=== PATIENT | female | born 1940 | race Two or more races ===

== ENCOUNTER 2024-08-13 21:00 | Emergency (ER) | payer MEDICARE, MEDICAID, SELFPAY ==
[2024-08-13 21:07] VITALS: BMI 32.0
[2024-08-13 21:08] VITALS: BP 130/78; PULSE 66; RESP 19; TEMP 36.7; O2SAT 97
[2024-08-13 21:17] VITALS: PULSE 72; RESP 18; O2SAT 94
--- NOTE | 2024-08-13 21:30 | EDNOTE_ITS ---
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 Since then patient is having continuous bleeding, severity moderate. Patient is not taking any blood thinner. Related Data Home Medications ?Medication ?Instructions ?Recorded ?Confirmed furosemide 20 mg tablet 40 mg PO QDAY 09/02/19 12/03/23 glipizide 10 mg tablet 1 tab PO BID 09/02/19 12/03/23 metoprolol tartrate 25 mg tablet 1 tab PO BID 09/02/19 12/03/23 pantoprazole 40 mg tablet,delayed 1 tab PO QDAY 09/02/19 12/03/23 release (Protonix) pioglitazone 30 mg tablet 1 tab PO QDAY 09/02/19 12/03/23 albuterol 90 mcg/actuation aerosol 90 mcg inhalation Q4HR PRN SOB 12/03/23 12/03/23 inhaler atorvastatin 80 mg tablet 80 mg PO QPM 12/03/23 12/03/23 benzonatate 100 mg capsule 100 mg PO TID PRN Cough 12/03/23 12/03/23 clopidogrel 75 mg tablet (Plavix) 75 mg PO QDAY 12/03/23 12/03/23 pentoxifylline 400 mg 400 mg PO TID 12/03/23 12/03/23 tablet,extended release Previous Rx's ?Medication ?Instructions ?Recorded ondansetron HCl 4 mg tablet 4 mg PO Q8H PRN nausea and 08/13/24 vomiting 4 days #20 tabs Allergies Allergy/AdvReac Type Severity Reaction Status Date / Time No Known Allergies Allergy Unverified 12/04/23 08:18 Review of Systems Review of Systems Narrative Review of Systems: Review of system reviewed and within normal limits except mentioned in HPI ED Exam Narrative Physical exam: VITAL SIGNS: Reviewed. GENERAL APPEARANCE: Alert and interactive, follows commands, no acute distress, HEAD AND FACE: Non-traumatic. ENT: PERRL, pink conjunctivitis, eyelid no trauma, Mucous membrane moist. Open wound noted on the left nares with significant amount of skin is gone, with active bleeding NECK: Supple, nontender, no nuchal rigidity. CHEST: No tenderness, no crepitus, no paradoxical movement, no retractions. LUNGS: Clear, well ventilated, symmetric, no rales, no wheezing, no ronchi, no stridor, good breath sounds bilaterally. HEART: Regular rate, regular rhythm, no murmur, no gallops. ABDOMEN: Soft, positive bowel sounds, nondistended, no guarding, nontender, no rebound, no masses, RECTAL: Deferred. GENITAL: Deferred. NEUROLOGICAL: Gross motor function intact sensory function intact, Appropriate for age. MUSCULOSKELETAL: low back nontender, full range of motion. EXTREMITIES: Nontender, full range of motion. SKIN: Color pink, dry, no rash, no lacerations, no abrasions, no contusions. LYMPHATICS: Deferred. Course Quality Measures none Orders Category Date Time Status CBC [CBC] Stat Lab 08/13/24 21:57 Completed CMP [Comprehensive Metabolic Panel] Stat Lab 08/13/24 21:57 Completed PT [Prothrombin Time with INR] Stat Lab 08/13/24 21:57 Completed PTT [Partial Thromboplastin Time] Stat Lab 08/13/24 21:57 Completed Metoclopramide Inj [Reglan Inj] Med 08/13/24 22:41 Discontinued 10 mg IVP X1 ONE Morphine Inj Med 08/13/24 22:15 Discontinued 10 mg IVP X1 ONE Morphine Inj Med 08/13/24 22:15 Discontinued 4 mg IVP X1 ONE Morphine Inj [Morphine Sulf Inj] Med 08/13/24 22:01 Discontinued 4 mg IVP X1 ONE Ondansetron Inj [Zofran Inj] Med 08/13/24 22:01 Discontinued 4 mg IV X1 ONE Tranexamic Acid 1,000 mg Ivpb [Tranexamic Acid Ivpb] Med 08/13/24 21:48 Discontinued 1,000 mg in 100 ml IV [id number] Tranexamic Acid 1,000 mg Ivpb [Tranexamic Acid Ivpb] Med 08/13/24 22:03 Discontinued 1,000 mg in 100 ml IV X1 Vital Signs Vital signs: Vital Signs Temperature 98.1 F 08/13/24 21:08 Pulse Rate 66 08/13/24 21:08 Respiratory Rate 19 08/13/24 21:08 Blood Pressure 130/78 08/13/24 21:08 Pulse Oximetry (%) 97 08/13/24 21:08 Oxygen Delivery Method Room Air 08/13/24 21:08 [facility] Patient data External records reviewed:: None Clinical information provided by:: patient and family Social determinants that could affect healthcare access:: none Patient has the following chronic illnesses:: History of skin cancer, diabetes apart How is presenting disease/condition affected by chronic disease/condition?: e xacerbated by Evaluation data The following diagnostics were reviewed and interpreted by me:: lab results Lab and/or radiology exams considered but not ordered:: None Interpretation Summary: Laboratory workup is significant for slight anemia of 9.4 hematocrit of 28.8 platelets is normal Medications Medications considered but not ordered:: None Medication administrations:: Medication Administration History Discontinued Medications Tranexamic Acid (Tranexamic Acid Ivpb) 1,000 mg in 100 mls @ 200 mls/hr IV [id number] PRN PRN Reason: BLEEDING Tranexamic Acid (Tranexamic Acid Ivpb) 1,000 mg in 100 mls @ 200 mls/hr IV X1 ONE Stop: 08/13/24 22:31 Last Admin: 08/13/24 22:27 Dose: 200 mls/hr Documented By: ERICK Metoclopramide HCl (Metoclopramide Inj 5 Mg/Ml Vial 2 Ml) 10 mg IVP X1 ONE; Protocol Stop: 08/13/24 22:42 Morphine Sulfate (Morphine Sulf Inj 4 Mg/Ml Vial) 4 mg IVP X1 ONE Stop: 08/13/24 22:02 Last Admin: 08/13/24 22:49 Dose: Not Given Documented By: KAZ Non-Admin Reason: Discontinued Morphine Sulfate (Morphine Sulf Inj 10 Mg/Ml Vial) 10 mg IVP X1 ONE Stop: 08/13/24 22:16 Last Admin: 08/13/24 22:50 Dose: Not Given Documented By: KAZ Non-Admin Reason: Discontinued Morphine Sulfate (Morphine Sulf Inj 10 Mg/Ml Vial) 4 mg IVP X1 ONE Stop: 08/13/24 22:16 Last Admin: 08/13/24 22:25 Dose: 4 mg Documented By: ERICK Ondansetron HCl (Ondansetron Inj 2 Mg/Ml Inj 2 Ml) 4 mg IV X1 ONE; Protocol Stop: 08/13/24 22:02 Last Admin: 08/13/24 22:26 Dose: 4 mg Documented By: ERICK Claros, morphine and tranexamic IV Consultations Consultation(s) initiated? (list below): No Diagnosis Differential Diagnosis ED Complaint MDM: Surgical wound hemorrhage, bleeding from the excision biopsy area left ivelisse Most likely diagnosis given after review of the tests above:: Surgical wound hemorrhage Admission Indicated Admission indicated?: not indicated Explain why admission is indicated or not indicated:: Stable Admission Request Was there a request for admission?: No Disposition Plan Disposition Plan: Discharge Discharge Attestation Discharge Attestation: The patient and all family members were given an opportunity to ask questions and understood the discharge instructions. Discharge instructions specifically effects, indications for sooner follow up or return to the emergency department, and the expected course of current diagnosis. Patient condition: Stable Medical Decision Making MDM Narrative MDM Narrative: Patient received tranexamic acid. Bleeding completely stopped after I did compression dressing. Patient stable for discharge. Differential Diagnosis Differential Diagnosis: Surgical wound hemorrhage, bleeding from the excision biopsy area left ivelisse Lab Data 08/13/24 21:57 08/13/24 21:57 Labs: Lab Results 08/13/24 Range/Units 21:57 WBC 6.0 (3.6-11.0) Thou/mm3 RBC 2.78 L (4.00-5.20) Miln/mm3 Hgb 9.4 L (12.0-16.0) g/dL Hct 28.8 L (36.0-46.0) % MCV 104 H (80-100) fL MCH 33.8 (25.0-35.0) pg MCHC 32.6 (31.0-37.0) g/dl RDW Std Deviation 54.0 H (36.4-46.3) fL Plt Count 179 (140-440) Thou/mm3 Neut % (Auto) 47 (37-80) % Lymph % (Auto) 44 (10-50) % [place] % (Auto) 5 (0-12) % Eos % (Auto) 4 (0-10) % Baso % (Auto) 0 (0-2.5) % Neut # (Auto) 2.8 (1.8-7.7) Thou/mm3 Lymph # (Auto) 2.6 (1.0-4.8) Thou/mm3 [place] # (Auto) 0.3 (0.0-0.8) Thou/mm3 Eos # (Auto) 0.2 (0.0-0.5) Thou/mm3 Baso # (Auto) 0.0 (0.0-0.2) Thou/mm3 Immature Gran # (Auto) 0.01 H (0.00-0.00) Thou/mm3 Absolute Nucleated RBC 0.00 (0.00-0.00) Thou/mm3 Immature Gran % 0 (0-0) % Nucleated RBC % 0 (0) /100 WBC PT 11.3 (9.0-12.2) Seconds INR 1.0 (0.9-1.3) APTT 26.4 (22.0-36.0) Seconds Sodium 140 (136-145) mMol/L Potassium 4.3 (3.4-5.1) mMol/L Chloride 108 H (98-107) mMol/L Carbon Dioxide 25.7 (20.0-31.0) mMol/L Anion Gap 6 L (7-16) BUN 27 H (9-23) mg/dL Creatinine 1.0 (0.6-1.3) mg/dL Estim Creat Clear Calc 42.3 L (>60) mL/min eGFR 56 L (60 - ) See Note BUN/Creatinine Ratio 27 H (12-20) Ratio Glucose 136 H (74-106) mg/dL Calculated Osmolality 286 (275-295) Calcium 9.5 (8.3-10.6) mg/dL Corrected Calcium 10.0 (8.5-10.1) mg/dL Total Bilirubin 0.3 (0.3-1.2) mg/dL AST 15 (0-34) U/L ALT < 7 L (10-49) U/L Alkaline Phosphatase 80 (46-116) U/L Total Protein 6.0 (5.7-8.2) gm/dL Albumin 3.4 (3.4-4.8) gm/dL Globulin 2.6 (2.3-3.5) gm/dL Albumin/Globulin Ratio 1.3 (1.2-2.2) Discharge Plan Plan Patient Disposition: HOME (Self Care) Disposition Comment: Stable Prescriptions/Referrals Prescriptions/Med Rec: New ondansetron HCl 4 mg tablet 4 mg PO Q8H PRN (Reason: nausea and vomiting) 4 Days Qty: 20 0RF No Action glipizide 10 mg Tablet 1 tab PO BID pantoprazole [Protonix] 40 mg Tablet,Delayed Release (Dr/Ec) 1 tab PO QDAY furosemide 20 mg Tablet 40 mg PO QDAY pioglitazone 30 mg Tablet 1 tab PO QDAY metoprolol tartrate 25 mg Tablet 1 tab PO BID atorvastatin 80 mg Tablet 80 mg PO QPM clopidogrel [Plavix] 75 mg Tablet 75 mg PO QDAY pentoxifylline 400 mg Tablet Extended Release 400 mg PO TID Rx Instructions: must administer with a meal/food benzonatate 100 mg Capsule 100 mg PO TID PRN (Reason: Cough) albuterol 90 mcg/actuation Aerosol 90 mcg INHALATION Q4HR PRN (Reason: SOB) Rx Instructions: 2 PUFFS Q4HRS PRN SOB Referrals: Neva([facility])Mike NP [Primary Care Provider] - In 1 week Problem List Clinical Impression: Postoperative wound hemorrhage Patient/Caregiver Discharge Instructions Discharge Activity: activity as tolerated Education Materials: Preventing Skin Cancer Additional Instructions: Thank you for the opportunity for serving you today. You are stable for discharged . You are advised to: Follow-up with your PCP in 1 to 2 days Return to ED for worsening of symptoms Increase oral fluids Do not remove the dressing for the next 48 hours Print Language: Slovak Stand Alone Forms: Tonya Award Info., Patient Portal Info Letter PA/RONALD Supervising Physician SHANTELLE/RONALD Supervising Physician: MD [place]
[2024-08-13 22:07] LABS: Basophils % (Auto) 0 % (0-2.5); Eosinophils # (Auto) 0.2 Thou/mm3 (0.0-0.5); Eosinophils % (Auto) 4 % (0-10); Hematocrit 28.8 % (36.0-46.0); Hemoglobin 9.4 g/dL (12.0-16.0); Immature Granulocytes % (Auto) 0 % (0-0); Immature Granulocytes Auto 0.01 Thou/mm3 (0.00-0.00); Lymphocytes # (Auto) 2.6 Thou/mm3 (1.0-4.8); Lymphocytes % (Auto) 44 % (10-50); Mean Corpuscular HGB Conc 32.6 g/dl (31.0-37.0); Mean Corpuscular Hemoglobin 33.8 pg (25.0-35.0); Mean Corpuscular Volume 104 fL (80-100); Monocytes # (Auto) 0.3 Thou/mm3 (0.0-0.8); Monocytes % (Auto) 5 % (0-12); Neutrophils # (Auto) 2.8 Thou/mm3 (1.8-7.7); Neutrophils % (Auto) 47 % (37-80); Nucleated Red Blood Cell % 0 /100 WBC (0); Platelet Count 179 Thou/mm3 (140-440); Red Blood Count 2.78 Miln/mm3 (4.00-5.20)
[2024-08-13 22:22] LABS: Partial Thromboplastin Time 26.4 Seconds (22.0-36.0); Prothrombin Time 11.3 Seconds (9.0-12.2)
[2024-08-13] MEDS: MORPHINE SULF INJ 10 MG/ML VIAL 4 MG IVP (22:25)
[2024-08-13] MEDS: ONDANSETRON INJ 2 MG/ML INJ 2 ML 4 MG IV (22:26)
[2024-08-13 22:27] LABS: Alanine Aminotransferase < 7 U/L (10-49); Albumin, Serum 3.4 gm/dL (3.4-4.8); Albumin/Globulin Ratio 1.3 (1.2-2.2); Alkaline Phosphatase 80 U/L (46-116); Anion Gap 6 (7-16); Aspartate Amino Transferase 15 U/L (0-34); BUN/Creatinine Ratio 27 Ratio (12-20); Bilirubin,Total 0.3 mg/dL (0.3-1.2); Blood Urea Nitrogen 27 mg/dL (9-23); Calcium 9.5 mg/dL (8.3-10.6); Carbon Dioxide 25.7 mMol/L (20.0-31.0); Chloride 108 mMol/L (98-107); Estimated Creatinine Clearance 42.3 mL/min (>60); Globulin 2.6 gm/dL (2.3-3.5); Glucose 136 mg/dL (74-106); Osmolality,Calculated 286 (275-295); Potassium 4.3 mMol/L (3.4-5.1); Sodium 140 mMol/L (136-145); eGFR 56 See Note
[2024-08-13] MEDS: TRANEXAMIC ACID 1,000 MG IVPB 1,000 MG/100 ML BAG 200 MG IV (22:27)
[2024-08-13] MEDS: METOCLOPRAMIDE INJ 5 MG/ML VIAL 2 ML 10 MG IVP (23:30)
[2024-08-14 00:28] VITALS: BP 170/54; PULSE 76; RESP 18; TEMP 36.6; O2SAT 96
== END 2024-08-14 00:33 | disposition home or self-care (01) ==
PROVIDERS: Nurse Practitioner Family; Emergency Provider Emergency Medicine; PCP Nurse Practitioner Family
DX: J95.831 Postprocedural hemorrhage of a respiratory system organ or structure following other procedure (principal); Y83.8 Other surgical procedures as the cause of abnormal reaction of the patient, or of later complication, without mention of misadventure at the time of the procedure
CPT/HCPCS: 36415; 80053; 85025; 85610; 85730; 99282; J2270; J2405; J2765; J3490

== ENCOUNTER → 2024-09-24 | Outpatient (CLI) | payer MEDICARE, MEDICAID, SELFPAY ==
[2024-09-24 14:24] LABS: Blood Urea Nitrogen 37 mg/dL (9-23); eGFR 56 See Note
== END | disposition home or self-care (01) ==
LOC: SLDO 12:43
PROVIDERS: Referring Provider Surgery Vascular Surgery; Visit Provider Surgery Vascular Surgery
DX: I70.245 Atherosclerosis of native arteries of left leg with ulceration of other part of foot (principal)
CPT/HCPCS: 36415; 82565; 84520

== ENCOUNTER → 2024-12-07 | Outpatient (CLI) | payer MEDICARE, MEDICAID, SELFPAY | END | disposition home or self-care (01) | LOC: SLDO 12:40 | PROVIDERS: PCP Nurse Practitioner Family; Referring Provider Nurse Practitioner Family; Visit Provider Nurse Practitioner Family | DX: L08.9 Local infection of the skin and subcutaneous tissue, unspecified (principal); E11.8 Type 2 diabetes mellitus with unspecified complications | CPT/HCPCS: 87070; 87077; 87186; 87205 ==

== ENCOUNTER 2024-12-15 12:24 | Inpatient (IN) | payer MEDICARE, MEDICAID, SELFPAY ==
[2024-12-15] VITALS (28 sets, daily range): BP systolic 92–180; BP diastolic 43–77; PULSE 80–93; RESP 12–100; TEMP 36.3–37.2; O2SAT 95–100; BMI 27.4
--- NOTE | 2024-12-15 12:32 | XR_ITS ---
Examination: AP chest single view Technique one AP portable semiupright chest single view Exam date and time: December 15, 2024 1330 hrs. Indications: Chest pain beginning 2 days ago. Findings: Moderate enlargement cardiac contour Prominent vascular congestion. Early septal edema. Prominent osteopenia Impression: Early CHF
--- NOTE | 2024-12-15 12:32 | XR_ITS ---
Examination: CT brain head without contrast. 2-D sagittal coronal reconstructions Date and time of exam:December 15, 2024 at 1319 hrs. Comparison: December 05, 2023 Indications: Onset altered mental status today CTDI: vol (mGy):57.0 DLP: (mGycm):1173 Technique: Multiple CT axial sections of the brain have been obtained, 5 mm slice thickness. Contrast has not been administered. 2-D sagittal, coronal reconstructions have been obtained Low dose protocols were performed. One or more of the following dose reduction techniques were used; automated exposure control, adjustment of the mA and/or KV according to patient size, use of iterative reconstruction technique. Findings: No significant ventricular enlargement. Intra-axial or extra-axial hemorrhage density is not seen. No mass effect or midline shift Basal cisterns are not remarkable. Fourth ventricle is midline. Cranial vault intact. Impression: Negative for acute hemorrhage, mass effect or midline shift If symptoms persist, consider brain MRI follow-up stroke protocol
--- NOTE | 2024-12-15 12:32 | EKG_ITS ---
[facility] Test Date: 2024-12-15 Pat Name: SHONDA PADRON Department: Room: - Gender: Female [employer] Project [employer]: : 1940 Requested By: Jone Allen Order Number: [id number] Reading MD: Jone Allen Measurements Intervals Hiram Rate: 85 P: 190 WI: 297 QRS: 46 QRSD: 96 T: 136 QT: 393 QTc: 468 Interpretive Statements SINUS RHYTHM WITH FIRST DEGREE AV BLOCK ST DEVIATION AND MODERATE T-WAVE ABNORMALITY, CONSIDER LATERAL ISCHEMIA [-0.1+ mV T-WAVE IN I/aVL/V5/V6] Compared to ECG 12/03/2023 17:51:56 First degree AV block now present T-wave abnormality still present Possible ischemia still present /store/S0/[id number]/[id number].pdf
--- NOTE | 2024-12-15 12:32 | XR_ITS ---
Examination: CT abdomen and pelvis without contrast. Coronal 3-D reconstructions. Sagittal 2-D reconstructions. Date and time of exam:December 15, 2024 at 1326 hrs. Indications: Vomiting and abdominal pain today CTDI: vol (mGy): 17.3 DLP: (mGycm): 1001 Technique: Axial images of the abdomen have been obtained, 3 mm slice thickness Intravenous contrast material has not been administered. Low dose protocols were performed. One or more of the following dose reduction techniques were used; automated exposure control, adjustment of the mA and/or KV according to patient size, use of iterative reconstruction technique. Findings: Trace pericardial thickening No focal liver lesions Cholelithiasis Gallbladder wall appears mildly thickened Spleen not enlarged No pancreatic or adrenal mass Perinephric stranding Renal arterial calcifications Tiny 1 to 2 mm bilateral renal calculi, no hydronephrosis or ureteral calculi Abdominal aortic calcification No bowel obstruction No pericecal inflammatory change No diverticulitis Large amounts of stool in the rectosigmoid with thickening the rectal wall, differential proctitis Air in the urinary bladder wall, urinary bladder wall thickening, severe emphysematous cystitis pattern Severe osteopenia Impression: Tiny bilateral nonobstructing renal calculi, no hydronephrosis or ureteral calculi No CT findings of appendicitis or bowel obstruction Large amounts of stool in rectosigmoid with thickening the rectal wall, differential would include proctitis Severe emphysematous cystitis pattern
--- NOTE | 2024-12-15 12:41 | EDNOTE_ITS ---
<Statement entered by Amalia Holden MD - 12/15/24 17:07> As co-signing physician, I was present and available for consult prn. I concur with the plan and care as documented by the midlevel provider. ED General RME/HPI General Chief complaint: Altered Mental Status Stated complaint: AMS Time Seen by Provider: 12/15/24 12:32 Arrival date/time: 12/15/24 12:24 CC: Altered mental status HPI patient presents to the ER via EMS to the patient has been altered for the past 2-1/2 days. Patient is normally talkative. However family made stated she has not been. EMS reports stable vital and route however and route the patient has a vomited coffee-ground emesis. Patient has responded to noxious stimuli and not answering any questions appropriately Related Data Home Medications ?Medication ?Instructions ?Recorded ?Confirmed furosemide 20 mg tablet 40 mg PO QDAY 09/02/1912/02 glipizide 10 mg tablet 1 tab PO BID 09/02/19 metoprolol tartrate 25 mg tablet 1 tab PO BID 09/02/19 12/03/23 pantoprazole 40 mg tablet,delayed 1 tab PO QDAY 12/03/23 release (Protonix) pioglitazone 30 mg tablet 1 tab PO QDAY 09/02/1912/02 albuterol 90 mcg/actuation aerosol 90 mcg inhalation Q 4HR PRN SOB 12/03/23 12/03/23 inhaler atorvastatin 80 mg tablet 80 mg PO QPM 12/03/23 benzonatate 100 mg capsule 100 mg PO TID PRN Cough 12/03/23 clopidogrel 75 mg tablet (Plavix) 75 mg PO QDAY 12/03/23 pentoxifylline 400 mg 400 mg PO TID 12/03/2312/02 tablet,extended release Allergies Allergy/AdvReac Type Severity Reaction Status Date / Time No Known Allergies Allergy Unverified 12/04/23 08:18 Review of Systems Review of Systems ROS Unobtainable: unobtainable due to mental status Past Medical History Past Medical History NEUROLOGIC: Negative Neurological Disorders or Seizures CARDIAC: Positive Cardiac Disorders, Atrial Fibrillation, Hypercholesterolemia, Deep Vein Thrombosis, Hypertension and Varicose Veins; Negative Congestive Heart Failure RESPIRATORY: Negative Chronic Obstructive Pulmonary Disease (COPD) GASTROINTESTINAL: Positive Gastrointestinal Disorders, Gastrointestinal Bleed, Ulcer and Obesity; Negative Hepatitis or Colorectal Cancer GENITOURINARY: Negative Genitourinary Disorders or Renal Disease REPRODUCTIVE: Positive Previous Pregnancies; Negative Breast Cancer, Endometriosis, Genital Herpes, Gonorrhea, Pelvic Inflammatory Disease, Syphilis or Uterine Prolapse MUSCULOSKELETAL: Positive Musculoskeletal Disorders and Arthritis; Negative Bone Cancer ENT: Positive Cataracts and Blind ENDOCRINE: Positive Endocrine Disorders and Diabetes Mellitus Type 2; Negative Diabetes Mellitus Type 1 HEMATOLOGIC: Negative Blood Disorders PSYCHO/SOCIAL: Positive Anxiety OTHER HISTORY: Positive Blood Transfusions; Negative Hospitalization, Autoimmune Disease, Down Syndrome, Developmental Delay, Shingles, Falls, Blood Transfusion Reaction, Anesthesia Reactions, Organ Transplant, Chemotherapy, Radiation Therapy, Hyperbaric Therapy, MRSA, VRSA, Vancomycin-Resistant Enterococci, Human Immunodeficiency Virus (HIV), Chicken Pox, Measles, Mumps, Rubella (Nepali Measles), Pertussis, Clostridium Difficile, Cancer, Breast Cancer, Cervical Cancer, Colorectal Cancer, Lung Cancer or Ovarian Cancer Family History FAMILY HISTORY: Negative Family Cardiac Disorders Surgical History SURGICAL: Negative Organ Transplant Social History SMOKING STATUS: Unknown if ever smoked ED Exam Narrative Physical exam: [General: Obese moaning to pain no other response appears not in any acute distress Head normocephalic HEENT: Eyes: Pupils are PERRLA EOMs are intact. Conjunctiva is pale. Mouth pink dry membranes uvula is midline swallow symmetrical. Lips are pale face no rhinorrhea no otorrhea no epistaxis. All other subsystems of ATTR within acceptable limits Neck is supple Chest equal chest rise nontender to palpation Respiratory: Clear to auscultation no wheezes crackles or rubs CV: Rate rhythm is regular no murmurs rubs or clicks Abdomen is distended secondary to body habitus soft nontender no masses positive bowel sounds all 4 quadrants. Coffee-ground emesis guaiac positive. Skin: Small open ulceration at the base of the left fifth toe. No surrounding erythema edema and small amount of exudate. Tender to palpation eliciting moaning from the patient. Right BKA. Stump is clean dry intact with surgical site well-healed. Not warm to touch. Otherwise skin is intact no petechiae rash induration ulceration or crepitus Extremities: Right lower extremity BKA stump. Passive range of motion no active range of motion Neuro: Moaning with noxious stimuli. Course Course Course Narrative: Patient's case presented to the resident for Dr. Bahena agrees to accept the patient for admission. Patient's case discussed with Dr. Monaco who agrees except the patient for admission to the ICU. Quality Measures none Orders Category Date Time Status EKG (ED ONLY) *Do not use* NOW Care 12/15/24 12:32 Completed Saline [Insert IV] NOW Care 12/15/24 12:32 Active Straight [In and Out Catheter] X1 Care 12/15/24 12:32 Completed Transfuse,blood/blood products NOW Care 12/15/24 13:37 Active Consult to Gastroenterology Stat Cons 12/15/24 13:[address] abdomen pelvis wo con Stat Exams 12/15/24 12:[address] head/brain wo con Stat Exams 12/15/24 12:32 Completed EKG (ED Only) Stat Exams 12/15/24 12:32 Draft XR chest 1V Stat Exams 12/15/24 12:32 Completed B-Type Natriuretic Peptide Stat Lab 12/15/24 13:00 Completed CBC Stat Lab 12/15/24 13:00 Completed Comprehensive Metabolic Panel Stat Lab 12/15/24 13:00 Completed Drug Screen,Urine Stat Lab 12/15/24 13:05 Completed LDH (Lactate Dehydrogenase) Stat Lab 12/15/24 13:00 Completed Lactic Acid [Lactate (Lactic Acid)] Stat Lab 12/15/24 13:00 Results Magnesium Stat Lab 12/15/24 13:00 Completed Occult Blood, Stool (LAB) Routine Lab 12/15/24 13:00 Completed Occult Blood, Stool (LAB) Routine Lab 12/15/24 13:00 Completed Partial Thromboplastin Time Stat Lab 12/15/24 13:00 Completed Path Review Blood Smear Stat Lab 12/15/24 13:00 Completed Procalcitonin Stat Lab 12/15/24 13:00 Completed Prothrombin Time with INR Stat Lab 12/15/24 13:00 Completed Troponin I Stat Lab 12/15/24 13:00 Completed Type and Screen Stat Lab 12/15/24 13:00 Results Urinalysis Stat Lab 12/15/24 13:05 Completed prbc [Red Blood Cells] Stat Lab 12/15/24 13:00 Results Pantoprazole Inj [Protonix Inj] Med 12/15/24 12:32 Discontinued 40 mg IVP X1 ONE Pantoprazole/Ns 80Mg IV Premix [Protonix/NS 80mg IV Med 12/15/24 12:34 Active Premix] 80 mg in 100 ml IV Q10H Sodium Chloride 0.9% 1000 ml [Ns] 1,000 ml Med 12/15/24 13:48 Active IV 100 mls/hr Sodium Chloride 0.9% 1000 ml [Ns] 1,000 ml Med 12/15/24 12:35 Discontinued IV 999 mls/hr Sodium Chloride 0.9% 1000 ml [Ns] 1,000 ml Med 12/15/24 14:01 Discontinued IV 999 mls/hr cefTRIAXone/D5w 1gm IV premix [Rocephin/D5w 1gm IV Med 12/15/24 13:48 Discontinued premix] 1 gm in 50 ml IV X1 Vital Signs Vital signs: Vital Signs Temperature 98.9 F 12/15/24 12:51 Pulse Rate 84 12/15/24 12:51 Respiratory Rate 15 12/15/24 12:51 Pulse Oximetry (%) 97 12/15/24 12:51 Oxygen Delivery Method Room Air 12/15/24 12:51 [facility] Patient data External records reviewed:: [facility] previous records and EMS form Clinical information provided by:: EMS Social determinants that could affect healthcare access:: none Patient has the following chronic illnesses:: 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 Hypertension hyperlipidemia type 2 diabetes right AKA How is presenting disease/condition affected by chronic disease/condition?: e xacerbated by Evaluation data The following diagnostics were reviewed and interpreted by me:: lab results, radiology exam(s) and EKG tracing(s) Lab and/or radiology exams considered but not ordered:: CBC shows no leukocytosis and H&H of 4.7 and 15.0. Platelets at 153. Coags showed APTT of 21.8 and PT and INR within acceptable limits. Lactic at 5.2 Urine is numerous WBCs 3+ bacteria leukocyte esterase positive but nitrite negative. Occult blood is positive UDS is negative CT head and C-spine is negative CMP shows no significant electrolyte imbalances the BUN is 129 and creatinine of 1.6. No transaminitis or T. bili elevation. Troponin of 0.219 BNP of 1212. Procalcitonin 0.16 Interpretation Summary: Patient has elevated troponin upper GI bleed PIO dehydration urinary tract infection altered mental status Medications Medications considered but not ordered:: None Medication administrations:: Medication Administration History Pantoprazole Sodium (Protonix/Ns 80mg Iv Premix) 80 mg in 100 mls @ 10 mls/hr IV Q10H BIMAL Stop: 12/18/24 10:33 Last Admin: 12/15/24 12:44 Dose: 10 mls/hr Documented By: GAVINO Sodium Chloride (Ns) 1,000 mls @ 100 mls/hr IV .Q10H BIMAL Stop: 01/14/25 13:47 Last Admin: 12/15/24 14:11 Dose: 100 mls/hr Documented By: GAVINO Discontinued Medications Sodium Chloride (Ns) 1,000 mls @ 999 mls/hr IV .Q1H1M ONE Stop: 12/15/24 13:35 Last Infusion: 12/15/24 13:45 Dose: Infused Documented By: Admin: 12/15/24 12:42 Dose: 999 mls/hr Documented By: GAVINO Ceftriaxone Sodium/Dextrose (Rocephin/D5w 1gm Iv Premix) 1 gm in 50 mls @ 100 mls/hr IV X1 ONE Stop: 12/15/24 14:17 Last Admin: 12/15/24 14:11 Dose: 100 mls/hr Documented By: GAVINO Sodium Chloride (Ns) 1,000 mls @ 999 mls/hr IV .Q1H1M ONE Stop: 12/15/24 15:01 Last Admin: 12/15/24 14:12 Dose: 999 mls/hr Documented By: GAVINO Pantoprazole Sodium (Pantoprazole Inj 40 Mg Vial) 40 mg IVP X1 ONE Stop: 12/15/24 12:33 Last Admin: 12/15/24 12:42 Dose: 40 mg Documented By: GAVINO None Consultations Consultation(s) initiated? (list below): Yes Consultation #1 (Physician, Specialty, Details): [place] Time: 14:11 Diagnosis Differential Diagnosis ED Complaint MDM: PIO altered mental status upper GI bleed anemia UTI dehydration Most likely diagnosis given after review of the tests above:: PIO altered mental status upper GI bleed anemia UTI dehydration Admission Indicated Admission indicated?: indicated Explain why admission is indicated or not indicated:: Requires further medical management Admission Request Was there a request for admission?: No Disposition Plan Disposition Plan: Admit Medical Decision Making Differential Diagnosis Differential Diagnosis: PIO altered mental status upper GI bleed anemia UTI dehydration Lab Data 12/15/24 13:00 12/15/24 13:00 Labs: Lab Results 12/15/24 12/15/24 12/15/24 Range/Units 13:00 13:00 13:05 WBC 10.1 (3.6-11.0) Thou/mm3 RBC 1.43 L* (4.00-5.20) Miln/mm3 Hgb 4.7 L* (12.0-16.0) g/dL Hct 15.0 L* (36.0-46.0) % MCV 105 H (80-100) fL MCH 32.9 (25.0-35.0) pg MCHC 31.3 (31.0-37.0) g/dl RDW Std Deviation 55.3 H (36.4-46.3) fL Plt Count 153 (140-440) Thou/mm3 Neut % (Auto) 82 H (37-80) % Lymph % (Auto) 14 (10-50) % [place] % (Auto) 3 (0-12) % Eos % (Auto) 0 (0-10) % Baso % (Auto) 0 (0-2.5) % Neut # (Auto) 8.3 H (1.8-7.7) Thou/mm3 Lymph # (Auto) 1.4 (1.0-4.8) Thou/mm3 [place] # (Auto) 0.3 (0.0-0.8) Thou/mm3 Eos # (Auto) 0.0 (0.0-0.5) Thou/mm3 Baso # (Auto) 0.0 (0.0-0.2) Thou/mm3 Immature Gran # (Auto) 0.07 H (0.00-0.00) Thou/mm3 Absolute Nucleated RBC 0.00 (0.00-0.00) Thou/mm3 Immature Gran % 1 H (0-0) % Nucleated RBC % 0 (0) /100 WBC Smear Path Review Sent to Pathologist PT 11.8 (9.0-12.2) Seconds INR 1.1 (0.9-1.3) APTT 21.8 L (22.0-36.0) Seconds Sodium 144 (136-145) mMol/L Potassium 4.4 (3.4-5.1) mMol/L Chloride 106 (98-107) mMol/L Carbon Dioxide 22.4 (20.0-31.0) mMol/L Anion Gap 16 (7-16) BUN 129 H* (9-23) mg/dL Creatinine 1.6 H (0.6-1.3) mg/dL Estim Creat Clear Calc 26.0 L (>60) mL/min eGFR 32 L (60 - ) See Note BUN/Creatinine Ratio 81 H (12-20) Ratio Glucose 259 H (74-106) mg/dL Calculated Osmolality 337 H (275-295) Lactic Acid 5.2 H* (0.4-2.0) mMol/L Calcium 9.0 (8.3-10.6) mg/dL Corrected Calcium 9.6 (8.5-10.1) mg/dL Magnesium 2.5 (1.6-2.6) mg/dL Total Bilirubin 0.3 (0.3-1.2) mg/dL AST 16 (0-34) U/L ALT 9 L (10-49) U/L Alkaline Phosphatase 63 (46-116) U/L Lactate Dehydrogenase 176 (120-246) U/L Troponin I 0.219 H* (0.0-0.045) ng/mL B-Natriuretic Peptide 1212 H* (0-100) pg/mL Total Protein 5.5 L (5.7-8.2) gm/dL Albumin 3.3 L (3.4-4.8) gm/dL Globulin 2.2 L (2.3-3.5) gm/dL Albumin/Globulin Ratio 1.5 (1.2-2.2) Procalcitonin 0.16 (0.0-0.49) ng/ml Ur Collection Type Clean Catch Urine Color Lt-Yellow (Lt Yel-Yel) Urine Clarity Hazy (Clear/Hazy) Urine pH 6.0 (5.0-7.0) Ur Specific [place] 1.018 (1.001-1.035) Urine Protein Trace (Neg - Trace) Urine Glucose (UA) Negative (Negative) Urine Ketones Negative (Negative) Urine Blood 3+ A (Negative) Urine Nitrite Negative (Negative) Urine Bilirubin Negative (Negative) Urine Urobilinogen (Auto) Negative (0.0-1.0) mg/dL Ur Leukocyte Esterase Positive (Negative) Urine RBC 129 H (0-3) /hpf Urine WBC 415 H (0-5) /hpf Ur Squamous Epith Cells 1 (0-5) /hpf Urine Bacteria 3+ A (None) Hyaline Casts < 1 (0-1) /hpf Stool Occult Blood Positive A Positive A (Negative) Urine Opiates Screen Negative (Negative) Urine Fentanyl Screen Negative (Negative) Ur Barbiturates Screen Negative (Negative) U Amphetamin/Meth Scrn Negative (Negative) U Benzodiazepines Scrn Negative (Negative) U Cocaine Metab Screen Negative (Negative) U Marijuana (THC) Screen Negative (Negative) Blood Type O Positive Antibody Screen NEGATIVE Crossmatch See Detail Blood Bank Wristband ID Yes Discharge Plan Plan Patient Disposition: Other Care w/in Hosp ([facility]) Patient condition on transfer: Stable Prescriptions/Referrals Prescriptions/Med Rec: No Action glipizide 10 mg Tablet 1 tab PO BID pantoprazole [Protonix] 40 mg Tablet,Delayed Release (Dr/Ec) 1 tab PO QDAY furosemide 20 mg Tablet 40 mg PO QDAY pioglitazone 30 mg Tablet 1 tab PO QDAY metoprolol tartrate 25 mg Tablet 1 tab PO BID atorvastatin 80 mg Tablet 80 mg PO QPM clopidogrel [Plavix] 75 mg Tablet 75 mg PO QDAY pentoxifylline 400 mg Tablet Extended Release 400 mg PO TID Rx Instructions: must administer with a meal/food benzonatate 100 mg Capsule 100 mg PO TID PRN (Reason: Cough) albuterol 90 mcg/actuation Aerosol 90 mcg INHALATION Q4HR PRN (Reason: SOB) Rx Instructions: 2 PUFFS Q4HRS PRN SOB Referrals: Neva([facility])Mike NP [Primary Care Provider] - In 1 week Problem List Clinical Impression: PIO (acute kidney injury), Altered mental status, Dehydration, UTI (urinary tract infection), Anemia, Acute upper GI bleed Patient/Caregiver Discharge Instructions Print Language: Armenian Stand Alone Forms: Tonya Award Info., Patient Portal Info Letter PA/GLOVE FORMER Supervising Physician PA/GLOVE FORMER Supervising Physician: Jone Strickland ENP
[2024-12-15] MEDS: PANTOPRAZOLE INJ 40 MG VIAL IVP (12:42)
[2024-12-15] MEDS: SODIUM CHLORIDE 0.9% 1000 ML 1,000 ML 999 ML IV ×2 (12:42→14:12)
[2024-12-15] MEDS: PANTOPRAZOLE/NS 80MG IV PREMIX 80 MG/100 ML BAG 10 MG IV ×2 (12:44→21:24)
[2024-12-15 13:09] LABS: Basophils % (Auto) 0 % (0-2.5); Eosinophils % (Auto) 0 % (0-10); Immature Granulocytes % (Auto) 1 % (0-0); Immature Granulocytes Auto 0.07 Thou/mm3 (0.00-0.00); Lymphocytes # (Auto) 1.4 Thou/mm3 (1.0-4.8); Lymphocytes % (Auto) 14 % (10-50); Mean Corpuscular HGB Conc 31.3 g/dl (31.0-37.0); Mean Corpuscular Hemoglobin 32.9 pg (25.0-35.0); Mean Corpuscular Volume 105 fL (80-100); Monocytes # (Auto) 0.3 Thou/mm3 (0.0-0.8); Monocytes % (Auto) 3 % (0-12); Neutrophils # (Auto) 8.3 Thou/mm3 (1.8-7.7); Neutrophils % (Auto) 82 % (37-80); Nucleated Red Blood Cell % 0 /100 WBC (0); Platelet Count 153 Thou/mm3 (140-440); RDW Standard Deviation 55.3 fL (36.4-46.3); Red Blood Count 1.43 Miln/mm3 (4.00-5.20); White Blood Count 10.1 Thou/mm3 (3.6-11.0)
[2024-12-15 13:11] LABS: Collection Type, Urine Clean Catch
[2024-12-15 13:14] LABS: Lactate (Lactic Acid) 5.2 mMol/L (0.4-2.0)
[2024-12-15 13:17] LABS: Hemoglobin 4.7 g/dL (12.0-16.0)
[2024-12-15 13:19] LABS: Amphetamine/Methamp Scrn,U Negative (Negative); Bacteria,Urine 3+; Barbiturate Screen,Urine Negative (Negative); Benzodiazepines Screen,Urine Negative (Negative); Benzoylecgonine Screen, Ur Negative (Negative); Bilirubin,Urine Negative (Negative); Blood,Urine 3+ (Negative); Clarity,Urine Hazy (Clear/Hazy); Color,Urine Lt-Yellow (Lt Yel-Yel); Fentanyl Screen,Urine Negative (Negative); Glucose, Urine Negative (Negative); Hyaline Casts,Urine < 1 /hpf (0-1); Ketones,Urine Negative (Negative); Leukocyte Esterase,Urine Positive (Negative); Nitrite,Urine Negative (Negative); Opiate Screen,Urine Negative (Negative); Protein,Urine Trace (Neg - Trace); RBC,Urine 129 /hpf (0-3); Specific Gravity,Urine 1.018 (1.001-1.035); Squamous Epithelial Cell,Urine 1 /hpf (0-5); THC Screen,Urine Negative (Negative); Urobilinogen,Urine Negative mg/dL (0.0-1.0); WBC,Urine 415 /hpf (0-5)
[2024-12-15 13:24] LABS: INR 1.1 (0.9-1.3); Partial Thromboplastin Time 21.8 Seconds (22.0-36.0); Prothrombin Time 11.8 Seconds (9.0-12.2)
[2024-12-15 13:27] LABS: OBS Card Lot # 2663210; OBS Developer Expiration Date 12; OBS Developer Lot # 124551749; OBS Performed By HICKE7; OBS QC OK? Yes; Occult Blood, Stool Positive (Negative)
[2024-12-15 13:29] LABS: OBS Developer Lot # 1245749; OBS Performed By HICKE1; OBS QC OK? Yes; Occult Blood, Stool Positive (Negative)
[2024-12-15 13:36] LABS: B-Type Natriuretic Peptide 1212 pg/mL (0-100)
[2024-12-15 13:46] LABS: Alanine Aminotransferase 9 U/L (10-49); Albumin, Serum 3.3 gm/dL (3.4-4.8); Albumin/Globulin Ratio 1.5 (1.2-2.2); Alkaline Phosphatase 63 U/L (46-116); Anion Gap 16 (7-16); Aspartate Amino Transferase 16 U/L (0-34); BUN/Creatinine Ratio 81 Ratio (12-20); Bilirubin,Total 0.3 mg/dL (0.3-1.2); Calcium (Corrected) 9.6 mg/dL (8.5-10.1); Carbon Dioxide 22.4 mMol/L (20.0-31.0); Chloride 106 mMol/L (98-107); Creatinine (Component) 1.6 mg/dL (0.6-1.3); Globulin 2.2 gm/dL (2.3-3.5); Glucose 259 mg/dL (74-106); LDH (Lactate Dehydrogenase) 176 U/L (120-246); Magnesium 2.5 mg/dL (1.6-2.6); Osmolality,Calculated 337 (275-295); Potassium 4.4 mMol/L (3.4-5.1); Procalcitonin 0.16 ng/ml (0.0-0.49); Sodium 144 mMol/L (136-145); Total Protein 5.5 gm/dL (5.7-8.2); eGFR 32 See Note
[2024-12-15 13:52] LABS: Blood Urea Nitrogen 129 mg/dL (9-23); Troponin I 0.219 ng/mL (0.0-0.045)
[2024-12-15] MEDS: SODIUM CHLORIDE 0.9% 1000 ML 1,000 ML 100 ML IV (14:11)
[2024-12-15] MEDS: cefTRIAXone/D5w 1gm IV premix 1 GM/50 ML BAG IV (14:11)
[2024-12-15 14:21] LABS: Path Review Blood Smear Sent to Pathologist
--- NOTE | 2024-12-15 15:23 | PD.RESHP ---
Documentation for date of: 12/15/24 HPI History of Present Illness Chief complaint: Vomiting blood, altered mental status History of present illness: 84-year-old female with past medical history of upper GI bleed, CVA, hypertension, hyperlipidemia, IDDM, right AKA, and peripheral artery disease was admitted to the ICU on 12/25/2024 after coming to the ED with complaints of altered mental status and bloody emesis. At the time of assessment patient was confused and was not able to provide any history therefore most of the history was taken from chart review and from patient's daughters were at bedside. Patient's daughter stated that around Friday the patient started having some vomiting episodes which they thought that the patient had eaten something that upset her stomach, but then on Friday and today she continued to vomit and today she had blood coming out of her nostrils as well as her vomit. Patient's daughter stated that patient has a ulcer in her left foot which she is being followed by vascular surgeon as an outpatient. She stated that the nurse that comes in for wound care stated that the wound looked clean and that it was not infected, but today patient did seem more confused and was not her baseline therefore she recommended them to come to the ER. Patient's daughters stated that patient had similar episode where she was also altered as she had bloody emesis more than a year ago where she went to [facility] and she had an endoscopy done due to bloody emesis. They did not remember if the patient was positive for H. pylori, but they stated that during this episode in the past she was on aspirin and Plavix, which was taken off. They also mention that around a year ago they placed the patient back on aspirin and Plavix and has been on until now. They stated that the patient has not been having any bloody bowel movements, dark stools, fevers, chills, or chest pain. ED course: Initially came in normotensive, afebrile, and mildly hypotensive. Initial labs were relevant for anemia (Hgb 4.7), PIO (creatinine 1.6 and BUN 129), lactic acidosis (5.2), troponinemia (0.219), elevated BNP (1212), positive fecal occult blood, and UA positive for bacteria. Initial imaging included abdomen/pelvis CT which showed nephrolithiasis which were nonobstructing, constipation, proctitis, and emphysematous cystitis; chest x-ray showed early CHF pattern; head CT was negative for any mass effect, hemorrhage, or midline shift. Received 2 L of IV fluids, Rocephin, and Protonix drip. PMH: As above Surgical Hx: Right AKA, cataract surgery, femoral artery stents Medications: Atorvastatin, Plavix, Lasix, metoprolol Social Hx: No history of smoking, drinking, illicit drugs Allergies: NKDA Review of Systems Review of Systems ROS Unobtainable: unobtainable due to mental status Past Medical History Past Medical History NEUROLOGIC: Negative Neurological Disorders or Seizures CARDIAC: Positive Cardiac Disorders, Atrial Fibrillation, Hypercholesterolemia, Deep Vein Thrombosis, Hypertension and Varicose Veins; Negative Congestive Heart Failure RESPIRATORY: Negative Chronic Obstructive Pulmonary Disease (COPD) GASTROINTESTINAL: Positive Gastrointestinal Disorders, Gastrointestinal Bleed, Ulcer and Obesity; Negative Hepatitis or Colorectal Cancer GENITOURINARY: Negative Genitourinary Disorders or Renal Disease REPRODUCTIVE: Positive Previous Pregnancies; Negative Breast Cancer, Endometriosis, Genital Herpes, Gonorrhea, Pelvic Inflammatory Disease, Syphilis or Uterine Prolapse MUSCULOSKELETAL: Positive Musculoskeletal Disorders and Arthritis; Negative Bone Cancer ENT: Positive Cataracts and Blind ENDOCRINE: Positive Endocrine Disorders and Diabetes Mellitus Type 2; Negative Diabetes Mellitus Type 1 HEMATOLOGIC: Negative Blood Disorders PSYCHO/SOCIAL: Positive Anxiety OTHER HISTORY: Positive Blood Transfusions; Negative Hospitalization, Autoimmune Disease, Down Syndrome, Developmental Delay, Shingles, Falls, Blood Transfusion Reaction, Anesthesia Reactions, Organ Transplant, Chemotherapy, Radiation Therapy, Hyperbaric Therapy, MRSA, VRSA, Vancomycin-Resistant Enterococci, Human Immunodeficiency Virus (HIV), Chicken Pox, Measles, Mumps, Rubella ([place] Measles), Pertussis, Clostridium Difficile, Cancer, Breast Cancer, Cervical Cancer, Colorectal Cancer, Lung Cancer or Ovarian Cancer Family History FAMILY HISTORY: Negative Family Cardiac Disorders Surgical History SURGICAL: Negative Organ Transplant Social History SMOKING STATUS: Unknown if ever smoked Exam Vital Signs Temp Pulse Resp BP Pulse Ox O2 Del Method 97.7 F 91 18 114/53 L 100 Room Air 12/15/24 15:14 12/15/24 15:14 12/15/24 15:14 12/15/24 15:14 12/15/24 15:14 12/15/24 15:14 Narrative Exam General: A/O x0, ill appearing elderly, lethargic, moaning Eyes: Right pupil reactive to light, left pupil dilated and nonreactive (residual from past CVA) Ears: No visual ear discharge, Hearing grossly intact. Nose: No visual nasal discharge. Dried blood around both nostrils Mouth/Throat: Dry mucous membranes, no redness, no lesions, dried blood around the lips. Neck: Short neck, no cervical lymphadenopathy. Lungs: Decreased breath sounds on the left side with coarse breath sounds on the right side Cardio: Normal S1/S2, regular rhythm, no murmurs, no JVD Abdomen: Soft, no palpable masses, peristalsis present, no guarding or rebound. Extremities: Right AKA, ulcer between left 5th and 4th toe, 1+ peripheral edema on the left, able to move both upper extremities. Skin: Ulcer between left 5th and 4th toe Neuro: Able to follow some commands, unable to provide any history, lethargic Results: Labs 12/16/24 04:45 12/16/24 04:45 Labs: Short CBC 12/15/24 Range/Units 13:00 WBC 10.1 (3.6-11.0) Thou/mm3 Hgb 4.7 L* (12.0-16.0) g/dL Hct 15.0 L* (36.0-46.0) % Plt Count 153 (140-440) Thou/mm3 BMP 12/15/24 13:00 Sodium 144 Potassium 4.4 Chloride 106 Carbon Dioxide 22.4 BUN 129 H* Creatinine 1.6 H Glucose 259 H Calcium 9.0 Cardiac Enzymes 12/15/24 Range/Units 13:00 Troponin I 0.219 H* (0.0-0.045) ng/mL Liver Function 12/15/24 Range/Units 13:00 Total Bilirubin 0.3 (0.3-1.2) mg/dL AST 16 (0-34) U/L ALT 9 L (10-49) U/L Alkaline Phosphatase 63 (46-116) U/L Albumin 3.3 L (3.4-4.8) gm/dL Urine 12/15/24 Range/Units 13:05 Urine Color Lt-Yellow (Lt Yel-Yel) Urine Clarity Hazy (Clear/Hazy) Urine pH 6.0 (5.0-7.0) Ur Specific [place] 1.018 (1.001-1.035) Urine Protein Trace (Neg - Trace) Urine Glucose (UA) Negative (Negative) Quality Measures Quality Measures none Advance care planning discussed with:: patient Medications Home Medications and Allergies Home Medications ?Medication ?Instructions ?Recorded ?Confirmed ?Type furosemide 20 mg tablet 40 mg PO QDAY 09/02/19 12/15/24 History glipizide 10 mg tablet 1 tab PO BID 09/02/19 12/15/24 History metoprolol tartrate 25 mg tablet 1 tab PO BID 09/02/19 12/15/24 History pantoprazole 40 mg tablet,delayed 1 tab PO QDAY 09/02/19 12/15/24 History release (Protonix) pioglitazone 30 mg tablet 1 tab PO QDAY 09/02/19 12/15/24 History albuterol 90 mcg/actuation aerosol 90 mcg inhalation Q4HR PRN SOB 12/03/23 12/15/24 History inhaler atorvastatin 80 mg tablet 80 mg PO QPM 12/03/23 12/15/24 History benzonatate 100 mg capsule 100 mg PO TID PRN Cough 12/03/23 12/15/24 History clopidogrel 75 mg tablet (Plavix) 75 mg PO QDAY 12/03/23 12/15/24 History pentoxifylline 400 mg 400 mg PO TID 12/03/23 12/15/24 History tablet,extended release aspirin 81 mg tablet,delayed 81 mg PO DAILY 12/15/24 12/15/24 History release ferrous sulfate 325 mg (65 mg mg PO DAILY 12/15/24 History iron) tablet (FeroSul) insulin glargine 100 unit/mL (3 20 unit subcut .qhs 12/15/24 12/15/24 History mL) subcutaneous pen (Lantus Solostar U-100 Insulin) potassium chloride 20 mEq 20 meq PO DAILY 12/15/24 12/15/24 History tablet,extended release(part/cryst) Allergies Allergy/AdvReac Type Severity Reaction Status Date / Time No Known Allergies Allergy Unverified 12/04/23 08:18 Visit Medications Acetaminophen (Acetaminophen Supp 650 Mg Supp) 650 mg VA Q6HR PRN PRN Reason: pain and Fever > 100.4 Stop: 01/14/25 15:09 Dextrose (Dextrose 50%-Water Inj 50 Ml Syringe) 25 ml IV Q15MIN PRN PRN Reason: BG 50-70 responsive npo pt Stop: 01/14/25 15:14 Dextrose (Dextrose 50%-Water Inj 50 Ml Syringe) 50 ml IV Q15MIN PRN PRN Reason: BG <50 OR BG <70 & pt unresponsive Stop: 01/14/25 15:14 Glucagon (Glucagon Inj 1 Mg Vial) 1 mg IM Q15MIN PRN PRN Reason: BG <70, and no IV access Pantoprazole Sodium (Protonix/Ns 80mg Iv Premix) 80 mg in 100 mls @ 10 mls/hr IV Q10H BIMAL Stop: 12/18/24 10:33 Last Admin: 12/15/24 12:44 Dose: 10 mls/hr Sodium Chloride (Ns) 1,000 mls @ 100 mls/hr IV .Q10H BIMAL Stop: 01/14/25 13:47 Last Admin: 12/15/24 14:11 Dose: 100 mls/hr Doxycycline Hyclate 100 mg/ (Sodium Chloride) 100 mls @ 100 mls/hr IV BID BIMAL Stop: 12/22/24 20:59 Ceftriaxone Sodium 1 gm/ (Sodium Chloride) 50 mls @ 100 mls/hr IV QDAY BIMAL Stop: 12/23/24 08:59 Insulin Human Lispro (Insulin Lispro (Admelog) 1 Unit/0.01 Ml Unit) 0 unit SC Q6H BIMAL; Protocol Stop: 01/14/25 15:14 Morphine Sulfate (Morphine Sulf Inj 10 Mg/Ml Vial) 1 mg IVP Q4H PRN PRN Reason: PAIN SCALE 4-10(Mod-Sev Stop: 12/20/24 15:14 Ondansetron HCl (Ondansetron Inj 2 Mg/Ml Inj 2 Ml) 4 mg IV Q6H PRN; Protocol PRN Reason: NAUSEA OR VOMITING Stop: 01/14/25 15:09 Pantoprazole Sodium (Pantoprazole Inj 40 Mg Vial) 40 mg IVP BID BIMAL Stop: 01/14/25 20:59 Discontinued Medications Sodium Chloride (Ns) 1,000 mls @ 999 mls/hr IV .Q1H1M ONE Stop: 12/15/24 13:35 Last Infusion: 12/15/24 13:45 Dose: Infused Ceftriaxone Sodium/Dextrose (Rocephin/D5w 1gm Iv Premix) 1 gm in 50 mls @ 100 mls/hr IV X1 ONE Stop: 12/15/24 14:17 Last Infusion: 12/15/24 15:05 Dose: Infused Sodium Chloride (Ns) 1,000 mls @ 999 mls/hr IV .Q1H1M ONE Stop: 12/15/24 15:01 Last Admin: 12/15/24 14:12 Dose: 999 mls/hr Pantoprazole Sodium (Pantoprazole Inj 40 Mg Vial) 40 mg IVP X1 ONE Stop: 12/15/24 12:33 Last Admin: 12/15/24 12:42 Dose: 40 mg Assessment & Plan Plan 84-year-old female with past medical history of upper GI bleed, CVA, hypertension, hyperlipidemia, IDDM, right AKA, and peripheral artery disease was admitted to the ICU on 12/25/2024 for management of acute blood loss anemia with acute encephalopathy and anticipation for vasopressor support. 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 She is very lethargic Most likely metabolic in the setting of acute blood loss anemia and UTI. Head CT unremarkable Speech evaluation ordered #Hx of CVA Patient was taking atorvastatin, Plavix, and aspirin Will hold off Plavix and aspirin for now in the setting of bleeding Patient will be n.p.o. for now CVS: #Possible acute decompensated heart failure Patient's BNP was 1212 Patient has 1+ peripheral edema on the left side There is some CHF pattern on chest x-ray There is no echo on file Echo ordered We will hold off from diuresis for now as patient is actively bleeding and could go into cardiogenic shock #Troponinemia Patient's troponin was elevated at 0.219 EKG did not show any acute ST changes This is most likely demand ischemia in the setting of blood loss and possible CHF exacerbation Will trend troponins Echo ordered #Hypotension Patient's blood pressure has been on the lower end, but maintaining a MAP above 65 Expect improvement with volume resuscitation from PRBC and IV fluids Respiratory: Stable Renal: #PIO Most likely prerenal in the setting of blood loss Patient came in with creatinine of 1.6 from her baseline of 1 IV fluids and volume repletion with PRBCs Avoid nephrotoxic agents Renally dose medications #Lactic acidosis Patient came in initially with a lactic acid of 5.2 Most likely secondary to blocked loss Will trend lactic acid #Nonobstructing nephrolithiasis Abdomen/pelvis CT that show some nonobstructing nephrolithiasis GI: #GI bleed #Hematemesis Patient came in initially with complaints of bloody emesis Patient does have a history of previous upper GI bleed from possible gastric ulcers which were followed by endoscopy in [facility] Fecal occult blood was positive Patient was taking aspirin and Plavix Continue Protonix drip Will transfuse 3 units of PRBC GI consulted #Severe constipation #Proctitis Abdomen/pelvis CT that shows some proctitis pattern as well as large amounts of stool within the rectosigmoid : #Emphysematous cystitis #UTI Abdomen/pelvis CT that shows severe emphysematous pattern with air in the urinary bladder wall UA showed bacteriuria Start patient on Rocephin 1 g daily [12/15/2024?] Blood cultures ordered Heme: #Acute blood loss anemia Patient came in with hemoglobin of 4.7 from her baseline of 9.4 on 08/13/2024. Patient does have a component of macrocytic anemia in the past with elevated MCV Patient had copious amounts of blood during vomiting episodes and fecal occult blood was positive Will transfuse 3 units of PRBCs. GI consulted Hospital Maintenance: Diet: NPO DVT ppx: held due to bleeding GI ppx: protonix IV lines: PIV Code status: Full Dispo: ICU for acute blood loss anemia, acute encephalopathy Case disclosed with Attending Dr. Lia Dave PGY1 Attending Provider Attestation/Addendum Patient seen and examined with above resident, Santo Dave MD. I agree with the findings, assessment, plan of care as document except for any differences below. Patient with emphysematous cystitis and severe sepsis with lactic acidosis 5.2 again elevated BUN/creatinine. Superimposed component of gastrointestinal hemorrhage, likely upper GI source. Remote history of peptic ulcer disease though H. pylori excluded in the past. Patient without any significant hematemesis at this point. No significant hematochezia or bright red blood per rectum. BUN/creatinine consistent with upper GI source. Will contact GI and transfuse as needed to maintain hemoglobin above 7. No vasopressor requirements at this time after adequate fluid resuscitation for potential severe sepsis as alternate etiology to hypotension and presentation. She has acute encephalopathy as alternate site of endorgan damage. Empiric antibiotics initiated with adequate coverage for both cystitis as well as potentially for left lower extremity wound, known significant peripheral artery disease. Follow-up on culture status to help narrow antibiotic regimen. Patient has Bar in place with adequate drainage. Patient with underlying diabetes we will optimize blood glucose less than 180. Appropriate DVT prophylaxis in place. Patient's family at bedside updated and agreed to DNR status. Total critical care time: I personally spent 40 minutes for review of physiologic parameters, directing plan of care throughout the day, coordination of care with other specialties, and counseling patient's family at bedside. This is exclusive of time spent teaching housestaff or performing any separate billable procedures. Patient continues to require critical care services for severe sepsis and acute upper GI bleed. She remains at high risk for further morbidity and mortality warranting close monitoring and care only available in the ICU.
[2024-12-15 16:04] LABS: Reflex Lactate? Y
[2024-12-15 17:07] LABS: Lactic Acid, 3 HR 4.1 mMol/L (0.4-2.0)
[2024-12-15] MEDS: MORPHINE SULF INJ 10 MG/ML VIAL IVP (18:47)
[2024-12-15] MEDS: ONDANSETRON INJ 2 MG/ML INJ 2 ML 4 MG IV (20:19)
[2024-12-15] MEDS: DOXYCYCLINE INJ 100 MG in SODIUM CHLORIDE 0.9% (POP) 100 ML IV (21:24)
--- NOTE | 2024-12-15 22:54 | PD.IMCONS ---
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 OPERATOR Consult Narrative Reason for consult: Hematemesis, hemoglobin 4.1 g getting transfusion History of present illness: 84 years old female admitted to the ICU because of hypotension and coffee-ground emesis with a presenting hemoglobin of 4.1 g She had a CT scan of the abdomen pelvis done without contrast which showed large stool in the colon emphysematous cystitis otherwise negative She had a BUN of 129 creatinine 1.1 lactic acid of 5.2 BNP 1212 and a troponin of 0.219 Patient has a history of CVA essential hypertension hyperlipidemia insulin-dependent diabetes mellitus right AKA and peripheral vascular disease She had altered mental status and encephalopathy on admission No history is obtainable from the patient cc:: cc: Palomo Fitzgerald MD Review of Systems Review of Systems ROS Unobtainable: unobtainable due to medical condition Meds Home Medications and Allergies Home Medications ?Medication ?Instructions ?Recorded ?Confirmed ?Type furosemide 20 mg tablet 40 mg PO QDAY 09/02/19 12/15/24 History glipizide 10 mg tablet 1 tab PO BID 09/02/19 12/15/24 History metoprolol tartrate 25 mg tablet 1 tab PO BID 09/02/19 12/15/24 History pantoprazole 40 mg tablet,delayed 1 tab PO QDAY 09/02/19 12/15/24 History release (Protonix) pioglitazone 30 mg tablet 1 tab PO QDAY 09/02/19 12/15/24 History albuterol 90 mcg/actuation aerosol 90 mcg inhalation Q4HR PRN SOB 12/03/23 12/15/24 History inhaler atorvastatin 80 mg tablet 80 mg PO QPM 12/03/23 12/15/24 History benzonatate 100 mg capsule 100 mg PO TID PRN Cough 12/03/23 12/15/24 History clopidogrel 75 mg tablet (Plavix) 75 mg PO QDAY 12/03/23 12/15/24 History pentoxifylline 400 mg 400 mg PO TID 12/03/23 12/15/24 History tablet,extended release aspirin 81 mg tablet,delayed 81 mg PO DAILY 12/15/24 12/15/24 History release ferrous sulfate 325 mg (65 mg mg PO DAILY 12/15/24 History iron) tablet (FeroSul) insulin glargine 100 unit/mL (3 20 unit subcut .qhs 12/15/24 12/15/24 History mL) subcutaneous pen (Lantus Solostar U-100 Insulin) potassium chloride 20 mEq 20 meq PO DAILY 12/15/24 12/15/24 History tablet,extended release(part/cryst) Allergies Allergy/AdvReac Type Severity Reaction Status Date / Time No Known Allergies Allergy Unverified 12/04/23 08:18 Exam Vital Signs Temp Pulse Resp BP Pulse Ox O2 Del Method 97.4 F 85 14 148/60 H 98 Room Air 12/15/24 21:00 12/15/24 21:00 12/15/24 21:00 12/15/24 21:00 12/15/24 21:00 12/15/24 17:55 Constitutional Comments: Chronically ill-appearing Routine Respiratory Exam Comments: Normal to auscultation Results Labs 12/15/24 13:00 12/15/24 13:00 Labs: Short CBC 12/15/24 Range/Units 13:00 WBC 10.1 (3.6-11.0) Thou/mm3 Hgb 4.7 L* (12.0-16.0) g/dL Hct 15.0 L* (36.0-46.0) % Plt Count 153 (140-440) Thou/mm3 BMP 12/15/24 13:00 Sodium 144 Potassium 4.4 Chloride 106 Carbon Dioxide 22.4 BUN 129 H* Creatinine 1.6 H Glucose 259 H Calcium 9.0 Cardiac Enzymes 12/15/24 Range/Units 13:00 Troponin I 0.219 H* (0.0-0.045) ng/mL Liver Function 12/15/24 Range/Units 13:00 Total Bilirubin 0.3 (0.3-1.2) mg/dL AST 16 (0-34) U/L ALT 9 L (10-49) U/L Alkaline Phosphatase 63 (46-116) U/L Albumin 3.3 L (3.4-4.8) gm/dL Urine 12/15/24 Range/Units 13:05 Urine Color Lt-Yellow (Lt Yel-Yel) Urine Clarity Hazy (Clear/Hazy) Urine pH 6.0 (5.0-7.0) Ur Specific [place] 1.018 (1.001-1.035) Urine Protein Trace (Neg - Trace) Urine Glucose (UA) Negative (Negative) Assessment and Plan Additional Assessment & Plan Additional Plan: # Hematemesis # Acute posthemorrhagic anemia plan agree with the blood transfusion consent will be obtained from the family for fiberoptic esophagogastroduodenoscopy with possible therapeutic intervention under intravenous moderate sedation possible biopsy Procedure has been scheduled for tomorrow afternoon IV Protonix Serial CBC Will follow the patient Other medical problems include Lactic acidosis PIO Stool impaction left colon Elevated BNP Resolving hypotension Elevated troponin 0.219 History of CVA Status post right AKA IDDM Essential hypertension Peripheral vascular disease Thank you very much for the opportunity to participate in care of this patient
[2024-12-16] VITALS (24 sets, daily range): BP systolic 129–189; BP diastolic 52–99; PULSE 82–96; RESP 0–97; TEMP 35.9–37; O2SAT 91–100; BMI 25.5; BMI 25.7
[2024-12-16] MEDS: INSULIN LISPRO (AdmeLOG) 1 UNIT/0.01 ML UNIT SC ×4 (00:25→17:45)
[2024-12-16 01:09] LABS: Lactate (Lactic Acid) 1.3 mMol/L (0.4-2.0)
[2024-12-16 01:15] LABS: Hematocrit 31.3 % (36.0-46.0); Hemoglobin 10.8 g/dL (12.0-16.0)
[2024-12-16 02:00] LABS: Troponin I 0.592 ng/mL (0.0-0.045)
[2024-12-16 05:41] LABS: Basophils % (Auto) 0 % (0-2.5); Eosinophils % (Auto) 0 % (0-10); Hematocrit 28.1 % (36.0-46.0); Hemoglobin 9.7 g/dL (12.0-16.0); Immature Granulocytes % (Auto) 1 % (0-0); Immature Granulocytes Auto 0.11 Thou/mm3 (0.00-0.00); Lymphocytes # (Auto) 1.7 Thou/mm3 (1.0-4.8); Lymphocytes % (Auto) 14 % (10-50); Mean Corpuscular HGB Conc 34.5 g/dl (31.0-37.0); Mean Corpuscular Hemoglobin 30.6 pg (25.0-35.0); Mean Corpuscular Volume 89 fL (80-100); Monocytes # (Auto) 0.8 Thou/mm3 (0.0-0.8); Monocytes % (Auto) 6 % (0-12); Neutrophils # (Auto) 9.3 Thou/mm3 (1.8-7.7); Neutrophils % (Auto) 79 % (37-80); Nucleated Red Blood Cell # 0.09 Thou/mm3 (0.00-0.00); Nucleated Red Blood Cell % 1 /100 WBC (0); Platelet Count 124 Thou/mm3 (140-440); RDW Standard Deviation 52.9 fL (36.4-46.3); Red Blood Count 3.17 Miln/mm3 (4.00-5.20); White Blood Count 11.9 Thou/mm3 (3.6-11.0)
[2024-12-16 06:08] LABS: Glucose Estimated Average 108 mg/dL (80-131); Hemoglobin A1C 5.4 % Hgb (4.8-6.0)
[2024-12-16 06:27] LABS: Alanine Aminotransferase 11 U/L (10-49); Albumin/Globulin Ratio 1.4 (1.2-2.2); Alkaline Phosphatase 49 U/L (46-116); Anion Gap 12 (7-16); Aspartate Amino Transferase 20 U/L (0-34); BUN/Creatinine Ratio 85 Ratio (12-20); Bilirubin,Total 0.2 mg/dL (0.3-1.2); Calcium 8.3 mg/dL (8.3-10.6); Calcium (Corrected) 9.1 mg/dL (8.5-10.1); Carbon Dioxide 23.4 mMol/L (20.0-31.0); Chloride 115 mMol/L (98-107); Creatinine (Component) 1.2 mg/dL (0.6-1.3); Estimated Creatinine Clearance 34.7 mL/min (>60); Globulin 2.1 gm/dL (2.3-3.5); Glucose 210 mg/dL (74-106); Magnesium 2.2 mg/dL (1.6-2.6); Osmolality,Calculated 335 (275-295); Phosphorous 3.5 mg/dL (2.4-5.1); Potassium 3.9 mMol/L (3.4-5.1); Sodium 150 mMol/L (136-145); Total Protein 5.1 gm/dL (5.7-8.2); eGFR 45 See Note
[2024-12-16 06:28] LABS: Blood Urea Nitrogen 102 mg/dL (9-23)
[2024-12-16] MEDS: PANTOPRAZOLE/NS 80MG IV PREMIX 80 MG/100 ML BAG 10 MG IV (07:41)
[2024-12-16] MEDS: ONDANSETRON INJ 2 MG/ML INJ 2 ML 4 MG IV ×2 (09:03→20:52)
[2024-12-16] MEDS: PANTOPRAZOLE INJ 40 MG VIAL IVP ×2 (09:14→20:33)
[2024-12-16] MEDS: cefTRIAXone/D5w 1gm IV premix 1 GM/50 ML BAG IV (09:14)
[2024-12-16] MEDS: DOXYCYCLINE INJ 100 MG in SODIUM CHLORIDE 0.9% (POP) 100 ML IV ×2 (09:14→20:33)
--- NOTE | 2024-12-16 10:01 | ESPR_ITS ---
Documentation for date of: 12/16/24 Subjective Subjective Interval history: 84-year-old female with past medical history of upper GI bleed, CVA, hypertension, hyperlipidemia, IDDM, right AKA, and peripheral artery disease was admitted to the ICU on 12/25/2024 after coming to the ED with complaints of altered mental status and bloody emesis. At the time of assessment patient was confused and was not able to provide any history therefore most of the history was taken from chart review and from patient's daughters were at bedside. Patient's daughter stated that around Friday the patient started having some vomiting episodes which they thought that the patient had eaten something that upset her stomach, but then on Friday and today she continued to vomit and today she had blood coming out of her nostrils as well as her vomit. Patient's daughter stated that patient has a ulcer in her left foot which she is being followed by vascular surgeon as an outpatient. She stated that the nurse that comes in for wound care stated that the wound looked clean and that it was not infected, but today patient did seem more confused and was not her baseline therefore she recommended them to come to the ER. Patient's daughters stated that patient had similar episode where she was also altered as she had bloody emesis more than a year ago where she went to [facility] and she had an endoscopy done due to bloody emesis. They did not remember if the patient was positive for H. pylori, but they stated that during this episode in the past she was on aspirin and Plavix, which was taken off. They also mention that around a year ago they placed the patient back on aspirin and Plavix and has been on until now. They stated that the patient has not been having any bloody bowel movements, dark stools, fevers, chills, or chest pain. 12/16/2024: Patient was seen and examined at bedside this morning. No overnight events. Patient is a little bit more alert today and was able to tell me her name and her date of , but still unable to tell me where she was and what year it was currently. Patient's hemoglobin today was 9.7. Patient received 3 units of PRBC. GI specialist will perform EGD today. Will continue with Protonix for now. Patient WBC did go slightly up to 11.9, but no fevers. Will continue with doxycycline and Rocephin for now. Patient's daughter stated that they spoke with patient's vascular surgeon who stated that he would like to CTA abdomen with femoral runoff, but given patient's kidney function at this time we will hold off until patient's kidney function improves. At this time patient is stable enough to be downgraded to the medical floors. Exam Vital Signs Temp Pulse Resp BP Pulse Ox O2 Del Method 97 F 89 11 L 141/63 H 96 Room Air 12/16/24 04:00 12/16/24 07:00 12/16/24 07:00 12/16/24 07:00 12/16/24 07:00 12/16/24 04:00 Narrative Exam General: A/O x1 (only to person and date of ), ill appearing elderly, more awake Eyes: Right pupil reactive to light, left pupil dilated and nonreactive (residual from past CVA) Ears: No visual ear discharge, Hearing grossly intact. Nose: No visual nasal discharge. Dried blood around both nostrils Mouth/Throat: Dry mucous membranes, no redness, no lesions Neck: Short neck, no cervical lymphadenopathy. Lungs: Clear breath sounds in Upper lobes, but decreased in lower lobes. Cardio: Normal S1/S2, regular rhythm, systolic ejection murmur, no JVD Abdomen: Soft, no palpable masses, peristalsis present, no guarding or rebound. Extremities: Right AKA, ulcer between left 5th and 4th toe, 1+ peripheral edema on the left, able to move both upper extremities. Skin: Ulcer between left 5th and 4th toe Neuro: Able to follow some commands, more awake, AAO x 1 (only 2 personand date of ) Objective Labs 12/16/24 04:45 12/16/24 04:45 Labs: Laboratory Results - last 24 hr 12/15/24 12/15/24 12/15/24 13:00 13:00 13:05 WBC 10.1 RBC 1.43 L* Hgb 4.7 L* Hct 15.0 L* MCV 105 H MCH 32.9 MCHC 31.3 RDW Std Deviation 55.3 H Plt Count 153 Neut % (Auto) 82 H Lymph % (Auto) 14 [place] % (Auto) 3 Eos % (Auto) 0 Baso % (Auto) 0 Neut # (Auto) 8.3 H Lymph # (Auto) 1.4 [place] # (Auto) 0.3 Eos # (Auto) 0.0 Baso # (Auto) 0.0 Immature Gran # (Auto) 0.07 H Absolute Nucleated RBC 0.00 Immature Gran % 1 H Nucleated RBC % 0 Smear Path Review Sent to Pathologist PT 11.8 INR 1.1 APTT 21.8 L Sodium 144 Potassium 4.4 Chloride 106 Carbon Dioxide 22.4 Anion Gap 16 BUN 129 H* Creatinine 1.6 H Estim Creat Clear Calc 26.0 L eGFR 32 L BUN/Creatinine Ratio 81 H Glucose [address] Glu mg/dL Hemoglobin A1c Calculated Osmolality 337 H Lactic Acid 5.2 H* Calcium 9.0 Corrected Calcium 9.6 Phosphorus Magnesium 2.5 Total Bilirubin 0.3 AST 16 ALT 9 L Alkaline Phosphatase 63 Lactate Dehydrogenase 176 Troponin I 0.219 H* B-Natriuretic Peptide 1212 H* Total Protein 5.5 L Albumin 3.3 L Globulin 2.2 L Albumin/Globulin Ratio 1.5 Procalcitonin 0.16 Ur Collection Type Clean Catch Urine Color Lt-Yellow Urine Clarity Hazy Urine pH 6.0 Ur Specific [place] 1.018 Urine Protein Trace Urine Glucose (UA) Negative Urine Ketones Negative Urine Blood 3+ A Urine Nitrite Negative Urine Bilirubin Negative Urine Urobilinogen (Auto) Negative Ur Leukocyte Esterase Positive Urine RBC 129 H Urine WBC 415 H Ur Squamous Epith Cells 1 Urine Bacteria 3+ A Hyaline Casts < 1 Stool Occult Blood Positive A Positive A Urine Opiates Screen Negative Urine Fentanyl Screen Negative Ur Barbiturates Screen Negative U Amphetamin/Meth Scrn Negative U Benzodiazepines Scrn Negative U Cocaine Metab Screen Negative U Marijuana (THC) Screen Negative Blood Type O Positive Antibody Screen NEGATIVE Crossmatch See Detail Blood Bank Wristband ID Yes 12/15/24 12/16/24 12/16/24 16:56 00:44 04:45 WBC 11.9 H RBC 3.17 L Hgb 10.8 L D 9.7 L Hct 31.3 L D 28.1 L MCV 89 MCH 30.6 MCHC 34.5 RDW Std Deviation 52.9 H Plt Count 124 L Neut % (Auto) 79 Lymph % (Auto) 14 [place] % (Auto) 6 Eos % (Auto) 0 Baso % (Auto) 0 Neut # (Auto) 9.3 H Lymph # (Auto) 1.7 [place] # (Auto) 0.8 Eos # (Auto) 0.0 Baso # (Auto) 0.0 Immature Gran # (Auto) 0.11 H Absolute Nucleated RBC 0.09 H Immature Gran % 1 H Nucleated RBC % 1 H Smear Path Review PT INR APTT Sodium 150 H Potassium 3.9 D Chloride 115 H Carbon Dioxide 23.4 Anion Gap 12 BUN 102 H* Creatinine 1.2 Estim Creat Clear Calc 34.7 L eGFR 45 L BUN/Creatinine Ratio 85 H Glucose [address] Glu mg/dL 108 Hemoglobin A1c 5.4 Calculated Osmolality 335 H Lactic Acid 4.1 H* 1.3 Calcium 8.3 Corrected Calcium 9.1 Phosphorus 3.5 Magnesium 2.2 Total Bilirubin 0.2 L AST 20 ALT 11 Alkaline Phosphatase 49 D Lactate Dehydrogenase Troponin I 0.592 H* D B-Natriuretic Peptide Total Protein 5.1 L Albumin 3.0 L Globulin 2.1 L Albumin/Globulin Ratio 1.4 Procalcitonin Ur Collection Type Urine Color Urine Clarity Urine pH Ur Specific [place] Urine Protein Urine Glucose (UA) Urine Ketones Urine Blood Urine Nitrite Urine Bilirubin Urine Urobilinogen (Auto) Ur Leukocyte Esterase Urine RBC Urine WBC Ur Squamous Epith Cells Urine Bacteria Hyaline Casts Stool Occult Blood Urine Opiates Screen Urine Fentanyl Screen Ur Barbiturates Screen U Amphetamin/Meth Scrn U Benzodiazepines Scrn U Cocaine Metab Screen U Marijuana (THC) Screen Blood Type Antibody Screen Crossmatch Blood Bank Wristband ID Quality Measures Quality Measures none Advance care planning discussed with:: patient and child Assessment & Plan Assessment Current Active Medications: Generic Name Dose Route Start Last Admin Trade Name Freq PRN Reason Stop Dose Admin Acetaminophen 650 mg 12/15/24 15:10 Acetaminophen Supp 650 Mg Supp DC 01/14/25 15:09 Q6HR PRN pain(1-3) and Fever > 100.4 Dextrose 25 ml 12/15/24 15:15 Dextrose 50%-Water Inj 50 Ml Syringe IV 01/14/25 15:14 Q15MIN PRN BG 50-70 responsive npo pt Dextrose 50 ml 12/15/24 15:15 Dextrose 50%-Water Inj 50 Ml Syringe IV 01/14/25 15:14 Q15MIN PRN BG <50 OR BG <70 & pt unresponsive Glucagon 1 mg 12/15/24 15:15 Glucagon Inj 1 Mg Vial IM Q15MIN PRN BG <70, and no IV access Doxycycline Hyclate 100 mg/ 100 mls @ 100 mls/hr 12/15/24 21:00 12/16/24 09:14 Sodium Chloride IV 12/22/24 20:59 100 mls/hr BID BIMAL Administration Ceftriaxone Sodium/Dextrose 1 gm in 50 mls @ 100 mls/hr 12/16/24 09:00 12/16/24 09:14 Rocephin/D5w 1gm Iv Premix IV 12/23/24 08:59 100 mls/hr QDAY BIMAL Administration Insulin Human Lispro 0 unit 12/15/24 15:15 12/16/24 06:39 Insulin Lispro (Admelog) 1 Unit/0.01 Ml Unit SC 01/14/25 15:14 2 unit Q6HR BIMAL Administration Protocol Morphine Sulfate 1 mg 12/15/24 15:15 12/15/24 18:47 Morphine Sulf Inj 10 Mg/Ml Vial IVP 12/20/24 15:14 1 mg Q4H PRN Administration PAIN SCALE 4-10(Mod-Sev Ondansetron HCl 4 mg 12/15/24 15:10 12/16/24 09:03 Ondansetron Inj 2 Mg/Ml Inj 2 Ml IV 01/14/25 15:09 4 mg Q6H PRN Administration NAUSEA OR VOMITING Protocol Pantoprazole Sodium 40 mg 12/16/24 09:00 12/16/24 09:14 Pantoprazole Inj 40 Mg Vial IVP 01/15/25 08:59 40 mg BID BIMAL Administration Plan 84-year-old female with past medical history of upper GI bleed, CVA, hypertension, hyperlipidemia, IDDM, right AKA, and peripheral artery disease was admitted to the ICU on 12/25/2024 for management of acute blood loss anemia with acute encephalopathy and anticipation for vasopressor support. 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 for now CVS: #Possible acute decompensated heart failure Patient's BNP was 1212 Patient has 1+ peripheral edema on the left side There is some CHF pattern on chest x-ray There is no echo on file Echo pending Holding off diuresis in setting of bleed #Troponinemia Patient's troponin was elevated at 0.219 EKG did not show any acute ST changes This is most likely demand ischemia in the setting of blood loss and possible CHF exacerbation pending Echo pending #Hypotension, resolved Respiratory: Stable Renal: #PIO, improving Most likely prerenal in the setting of blood loss Patient came in with creatinine of 1.6 from her baseline of 1 Creatinine today 1.2 Avoid nephrotoxic agents Renally dose medications #Lactic acidosis, resolved #Nonobstructing nephrolithiasis Abdomen/pelvis CT that show some nonobstructing nephrolithiasis GI: #GI bleed #Hematemesis Patient came in initially with complaints of bloody emesis Patient does have a history of previous upper GI bleed from possible gastric ulcers which were followed by endoscopy in [facility] Fecal occult blood was positive Patient was taking aspirin and Plavix, held for now Continue Protonix Transfused 3 units of PRBC GI consulted, will undergo EGD today #Severe constipation #Proctitis Abdomen/pelvis CT that shows some proctitis pattern as well as large amounts of stool within the rectosigmoid : #Emphysematous cystitis #UTI Abdomen/pelvis CT that shows severe emphysematous pattern with air in the urinary bladder wall UA showed bacteriuria Continue patient on Rocephin 1 g daily [12/15/2024?] Urine culture grew GNR's Blood cultures pending Heme: #Acute blood loss anemia Patient came in with hemoglobin of 4.7 from her baseline of 9.4 on 08/13/2024. Patient does have a component of macrocytic anemia in the past with elevated MCV Patient had copious amounts of blood during vomiting episodes and fecal occult blood was positive Hemoglobin 9.7 today and no more episodes of vomiting or hematemesis Transfused 3 units of PRBCs. GI consulted, will undergo EGD today ID: #Ulcer and left foot between 4th and 5th digit Patient's vascular surgeon wanted on CT abdomen with femoral runoff, but given patient's PIO we will likely need to wait after PIO has resolved Will continue doxycycline Hospital Maintenance: Diet: NPO DVT ppx: held due to bleeding GI ppx: protonix IV lines: PIV Code status: Full Dispo: Downgrade to medical floors Case disclosed with Attending Dr. Lia Dave PGY1 Attending Provider Attestation/Addendum Patient seen and examined with above resident, Santo Dave MD. I agree with the findings, assessment, and plan of care as document except for any differences below. Patient with significant improvement after aggressive volume resuscitation. The white count is elevated potential diagnosis leans towards more hypovolemic/hemorrhagic etiology for endorgan dysfunction rather than true septic shock/severe sepsis. Nonetheless patient remains on appropriate antibiotics with need to exclude presence of bacterial infection of the bloodstream from potential emphysematous cystitis or left lower extremity wound between the left interdigital region. Patient will be evaluated by wound care and likely needs outpatient follow-up for long-term management. There is no significant breakdown of tissue suggesting deep-seated infection or bony involvement. There is no expression at this point requiring incision or drainage. Patient has good urine output and clinically has responded well to empiric antibiotic regimen. Will follow-up cultures to help narrow prior to upcoming discharge. Bar will remain in place for close monitoring of output. Patient's mentation slightly improved and she is now oriented to self and date of of she continues to be confused about where she is and how she got here. Patient's daughter was at bedside and counseled on plan of care including potential role for CT 1 of I would hold off on this at this point until GI bleed is adequately addressed along with hypotension and infection to avoid secondary injury to the kidneys which have sustained an PIO in the setting of her hypovolemia/sepsis. Patient remains hemodynamically stable for transfer to medicine [place] for ongoing management. EGD will likely need to be done in endoscopy based on timing and bed availability. Total critical care time: I personally spent 40 minutes for review of physiologic parameters, directing plan of care throughout the day, coordination of care with other subspecialist, and counseling patient's family at bedside. This is exclusive of time spent teaching housestaff or performing any separate billable procedures. Patient remains at significant risk for morbidity and mortality warranting close monitoring in the intensive care unit. Critical care services required for severe sepsis, upper GI hemorrhage, acute kidney injury, acute metabolic encephalopathy.
--- NOTE | 2024-12-16 10:35 | PCS.ST ---
pt NPO for procedure. COST ACCOUNTING CLERK will attempt swallow evaluation later today if schedule permits.
--- NOTE | 2024-12-16 13:17 | PC.SS ---
Update: Patient on room air. Patient is NPO. Plan is for patient to have endoscopy today. Dr. Yates to perform procedure. Patient has been downgraded from ICU.
--- NOTE | 2024-12-16 15:17 | ECHO_ITS ---
Transthoracic Echo Report Ht (in): 64 Wt (lb): 149 Exam Location: Portable Status: Inpatient Rolled Seat Trimmer: CHAU Brenner^^^^ Indications: Procedure Performed: BP: 0 / 63 HR: 84 Technical Quality: Technically difficult study MEASUREMENTS (Male / Female) Normal Values 2D ECHO LV Diastolic Diameter PLAX 3.6 cm 4.2 - 5.9 / 3.9 - 5.3 cm LV Systolic Diameter PLAX 2.5 cm IVS Diastolic Thickness 1.4 cm 0.6 - 1.0 / 0.6 - 0.9 cm LVPW Diastolic Thickness 1.1 cm 0.6 - 1.0 / 0.6 - 0.9 cm LV Relative Wall Thickness 0.7 LVOT Diameter 1.6 cm Aortic Root Diameter 2.7 cm LA Systolic Diameter LX 4.2 cm 3.0 - 4.0 / 2.7 - 3.8 cm LA Volume Index 49.2 cm?/m? 16 - 28 cm?/m? Ascending Aorta Diameter 2.8 cm DOPPLER AV Peak Velocity 297.0 cm/s AV Peak Gradient 35.3 mmHg AV Mean Gradient 23.0 mmHg AV Velocity Time Integral 84.7 cm LVOT Peak Velocity 218.0 cm/s LVOT Peak Gradient 19.0 mmHg LVOT Velocity Time Integral 91.5 cm LVOT Cardiac Index 8780.5 cm?/min?m? AV Area Cont Eq vti 2.2 cm? AV Area Cont Eq pk 1.5 cm? MV Peak Velocity 157.0 cm/s MV Peak Gradient 9.9 mmHg MV Mean Velocity 107.0 cm/s MV Mean Gradient 5.0 mmHg MV Area PHT 4.0 cm? MR Peak Velocity 482.0 cm/s MR Peak Gradient 92.9 mmHg Mitral E Point Velocity 56.6 cm/s Mitral A Point Velocity 109.0 cm/s Mitral E to A Ratio 0.5 LV E' Lateral Velocity 9.1 cm/s Mitral E to LV E' Lateral Ratio 6.2 LV E' Septal Velocity 5.1 cm/s Mitral E to LV E' Septal Ratio 11.1 TR Peak Velocity 285.0 cm/s TR Peak Gradient 32.5 mmHg RVOT Peak Velocity 80.5 cm/s FINDINGS Left Ventricle Normal left ventricular size, wall thickness, systolic function with no obvious regional wall motion abnormalities. There is grade I diastolic dysfunction of the left ventricle (impaired relaxation pattern). The left ventricular ejection fraction is normal, estimated at 55-60%. Right Ventricle The right ventricle is normal in size and systolic function. The estimated right ventricular systolic pressure, 35 mmHg. Left Atrium Mildly increased left atrial volume 49.2 mL/m?. Right Atrium The right atrial cavity size is mildly increased. Atrial Septum The interatrial septum appears normal with no evidence of a shunt. Aorta The aorta is normal by two-dimensional, color flow and Doppler interrogation. Mitral Valve Mild mitral regurgitation. Mild thickening of the mitral valve leaflets. Mild mitral annular calcification. Aortic Valve Moderate aortic valve stenosis, mean gradient 23 mmHg, NIKUNJ 2.2 cm?. Tricuspid Valve There is mild tricuspid valve regurgitation. Pulmonic Valve The pulmonic valve is not well visualized. There is no significant pulmonic valve regurgitation. Vessels The pulmonary artery appears normal. The inferior vena cava pulmonary and hepatic veins appear normal. Pericardium The pericardium is normal by two-dimensional imaging. There is no significant pericardial effusion. CONCLUSIONS Indication: CHF Normal size and function. estimated LVEF 55-60%. Mild LVH. Diastolic Dysfunction I. Normal RV size and function. RVSP mildly elevated at 35 and 40 mmHg. Moderate aortic stenosis with peak velocity of 3.0 cm/s, mean gradient of 23 mmHg, valve area of 1.2 cm? Mildly dilated LA. Mild MR with mild MAC and mild TR. Small pericardial effusion noted without any evidence of cardiac tamponade. Possible chronic effusion given the fibrogenous exudate on the RV wall Gonzalo Hahn (Electronically Signed) Final Date: 16 December 2024 20:26
[2024-12-16] MEDS: MORPHINE SULF INJ 10 MG/ML VIAL IVP (17:30)
[2024-12-16] MEDS: Silvasorb Gel 45 ML TUBE TOP (20:33)
[2024-12-17] VITALS (7 sets, daily range): BP systolic 138–170; BP diastolic 57–84; PULSE 86–96; RESP 15–98; TEMP 35.6–36.7; O2SAT 94–98; BMI 25.7
[2024-12-17] MEDS: ONDANSETRON INJ 2 MG/ML INJ 2 ML 4 MG IV (05:32)
[2024-12-17 05:56] LABS: Basophils % (Auto) 0 % (0-2.5); Eosinophils % (Auto) 0 % (0-10); Hematocrit 27.1 % (36.0-46.0); Hemoglobin 9.2 g/dL (12.0-16.0); Immature Granulocytes % (Auto) 2 % (0-0); Immature Granulocytes Auto 0.19 Thou/mm3 (0.00-0.00); Lymphocytes # (Auto) 1.9 Thou/mm3 (1.0-4.8); Lymphocytes % (Auto) 18 % (10-50); Mean Corpuscular HGB Conc 33.9 g/dl (31.0-37.0); Mean Corpuscular Hemoglobin 30.7 pg (25.0-35.0); Mean Corpuscular Volume 90 fL (80-100); Monocytes # (Auto) 0.7 Thou/mm3 (0.0-0.8); Monocytes % (Auto) 6 % (0-12); Neutrophils # (Auto) 7.5 Thou/mm3 (1.8-7.7); Neutrophils % (Auto) 73 % (37-80); Nucleated Red Blood Cell # 0.08 Thou/mm3 (0.00-0.00); Nucleated Red Blood Cell % 1 /100 WBC (0); Platelet Count 148 Thou/mm3 (140-440); RDW Standard Deviation 57.2 fL (36.4-46.3); White Blood Count 10.2 Thou/mm3 (3.6-11.0)
[2024-12-17 06:17] LABS: Alanine Aminotransferase 11 U/L (10-49); Albumin, Serum 3.5 gm/dL (3.4-4.8); Albumin/Globulin Ratio 1.6 (1.2-2.2); Alkaline Phosphatase 50 U/L (46-116); Anion Gap 13 (7-16); Aspartate Amino Transferase 17 U/L (0-34); BUN/Creatinine Ratio 71 Ratio (12-20); Bilirubin,Total 0.3 mg/dL (0.3-1.2); Blood Urea Nitrogen 78 mg/dL (9-23); Calcium 9.3 mg/dL (8.3-10.6); Calcium (Corrected) 9.7 mg/dL (8.5-10.1); Carbon Dioxide 21.8 mMol/L (20.0-31.0); Chloride 118 mMol/L (98-107); Creatinine (Component) 1.1 mg/dL (0.6-1.3); Estimated Creatinine Clearance 36.8 mL/min (>60); Globulin 2.2 gm/dL (2.3-3.5); Glucose 216 mg/dL (74-106); Magnesium 2.3 mg/dL (1.6-2.6); Osmolality,Calculated 333 (275-295); Phosphorous 2.6 mg/dL (2.4-5.1); Potassium 3.5 mMol/L (3.4-5.1); Sodium 153 mMol/L (136-145); Total Protein 5.7 gm/dL (5.7-8.2); eGFR 50 See Note
[2024-12-17] MEDS: POTASSIUM CHLORIDE 20 mEq TABCR 40 MEQ PO (08:40)
[2024-12-17] MEDS: cefTRIAXone/D5w 1gm IV premix 1 GM/50 ML BAG IV (08:40)
[2024-12-17] MEDS: DOXYCYCLINE INJ 100 MG in SODIUM CHLORIDE 0.9% (POP) 100 ML IV ×2 (08:41→20:26)
[2024-12-17] MEDS: PANTOPRAZOLE INJ 40 MG VIAL IVP ×2 (08:41→20:26)
[2024-12-17] MEDS: Silvasorb Gel 45 ML TUBE TOP (08:41)
[2024-12-17] MEDS: DEXTROSE 5%-WATER 1,000 ML 75 ML IV (10:28)
[2024-12-17] MEDS: INSULIN LISPRO (AdmeLOG) 1 UNIT/0.01 ML UNIT SC ×2 (11:56→16:57)
[2024-12-17] MEDS: MORPHINE SULF INJ 10 MG/ML VIAL IVP ×2 (12:34→17:06)
[2024-12-17 13:05] LABS: Sodium 148 mMol/L (136-145)
[2024-12-17 13:06] LABS: Troponin I 0.235 ng/mL (0.0-0.045)
--- NOTE | 2024-12-17 15:14 | PC.SS ---
RN HOME CARE conducted phone contact with the patient?s daughter, Tara Serna to conduct initial assessment and to discuss discharge planning.? Patient resides at home with daughter.? Patient utilizes a wheelchair to assist with mobility.? Patient does not utilize home oxygen.? Patient requires assistance with completion of ADL?s.? Patient?s medical surrogate decision maker is daughter, Tara Serna.? Patient?s PCP is JEWEL Govea.? Patient?s bridge welder is Dr. Ramires.? Patient does not participate with dialysis.? 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 Patient utilizes [facility]; for medication services.? Patient aligned with [facility] home health.? If home health recommended, [facility] preferred home health agency.? Patient possesses a history of diabetes, insulin dependent.? Discharge plan is for the patient to return home at the time of discharge.? Family will provide transportation on behalf of the patient. ?No further intervention required at this time, high school social studies tutor will be available to address any further concerns.? Next of Kin: Tara Serna D/C Plan: Home
--- NOTE | 2024-12-17 17:05 | ESPR_ITS ---
<Statement entered by Agustín Mcclendon MD - 12/18/24 09:38> Senior Resident Attestation: I supervised/discussed management plan with partner marketing intern physician Dr. Greenwood, and was involved in the care of this patient. I personally saw and examined the patient and discussed the assessment and plan with the entire medicine team, including my attending. I agree with the assessment and plan as documented. Patient's care was discussed with attending physician, Dr. Prabhakar. Agustín Mcclendon MD PGY-2. Documentation for date of: 12/17/24 Subjective Subjective Interval history: Patient is seen and examined bedside Patient was downgraded from ICU yesterday. She was admitted in the ICU for GI bleed, got 3 PRBC transfusion and later upper GI endoscopy was done by Dr. Yates that revealed erosion at gastroesophageal junction, nonbleeding gastric ulcers with a clean ulcer base, multiple small ulcer measuring 9 to 10 mm in size, gastritis. Dr. Yates recommended peptic ulcer disease diet No acute overnight events. Still complaining of mild epigastric pain and headache Labs done today showed sodium 153, hemoglobin 9.2 Patient was started on D5 at 75 mL/h and repeat sodium done at 12 PM showed sodium of 148, D5W is discontinued at 5:15 PM Will recheck sodium levels during a.m. labs and will treat accordingly Exam Vital Signs Temp Pulse Resp BP Pulse Ox O2 Del Method O2 Flow Rate 97.9 F 94 23 H 163/73 H 95 Room Air 3 12/17/24 12:00 12/17/24 16:00 12/17/24 12:00 12/17/24 12:00 12/17/24 12:00 12/17/24 12:00 12/16/24 19:39 Narrative Exam General: Awake. HEENT: Normocephalic, atraumatic, mucous membranes moist. Heart: Regular rate and rhythm, ejection systolic murmur in aortic area Lungs: Clear to auscultation with no wheezing or crackles. Abdomen: Soft, nondistended, nontender, positive bowel sounds. ?No guarding or rebound tenderness. Neurologic: Alert and oriented x3, no gross neurological deficit, and patient able to move all 4 extremities. Extremities: No edema. 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 Objective Labs 12/18/24 05:00 12/18/24 13:00 Labs: Laboratory Results - last 24 hr 12/17/24 12/17/24 05:40 12:08 WBC 10.2 RBC 3.00 L Hgb 9.2 L Hct 27.1 L MCV 90 MCH 30.7 MCHC 33.9 RDW Std Deviation 57.2 H Plt Count 148 Neut % (Auto) 73 Lymph % (Auto) 18 [place] % (Auto) 6 Eos % (Auto) 0 Baso % (Auto) 0 Neut # (Auto) 7.5 Lymph # (Auto) 1.9 [place] # (Auto) 0.7 Eos # (Auto) 0.0 Baso # (Auto) 0.0 Immature Gran # (Auto) 0.19 H Absolute Nucleated RBC 0.08 H Immature Gran % 2 H Nucleated RBC % 1 H Sodium 153 H 148 H Potassium 3.5 Chloride 118 H Carbon Dioxide 21.8 Anion Gap 13 BUN 78 H Creatinine 1.1 Estim Creat Clear Calc 36.8 L eGFR 50 L BUN/Creatinine Ratio 71 H Glucose 216 H Calculated Osmolality 333 H Calcium 9.3 Corrected Calcium 9.7 Phosphorus 2.6 Magnesium 2.3 Total Bilirubin 0.3 AST 17 ALT 11 Alkaline Phosphatase 50 Troponin I 0.235 H* D Total Protein 5.7 Albumin 3.5 D Globulin 2.2 L Albumin/Globulin Ratio 1.6 Quality Measures Quality Measures none Advance care planning discussed with:: patient and child Assessment & Plan Assessment Current Active Medications: Generic Name Dose Route Start Last Admin Trade Name Freq PRN Reason Stop Dose Admin Acetaminophen 650 mg 12/15/24 15:10 Acetaminophen Supp 650 Mg Supp [place] 01/14/25 15:09 Q6HR PRN pain(1-3) and Fever > 100.4 Dextrose 25 ml 12/15/24 15:15 Dextrose 50%-Water Inj 50 Ml Syringe IV 01/14/25 15:14 Q15MIN PRN BG 50-70 responsive npo pt Dextrose 50 ml 12/15/24 15:15 Dextrose 50%-Water Inj 50 Ml Syringe IV 01/14/25 15:14 Q15MIN PRN BG <50 OR BG <70 & pt unresponsive Glucagon 1 mg 12/15/24 15:15 Glucagon Inj 1 Mg Vial IM Q15MIN PRN BG <70, and no IV access Doxycycline Hyclate 100 mg/ 100 mls @ 100 mls/hr 12/15/24 21:00 12/17/24 08:41 Sodium Chloride IV 12/22/24 20:59 100 mls/hr BID BIMAL Administration Ceftriaxone Sodium/Dextrose 1 gm in 50 mls @ 100 mls/hr 12/16/24 09:00 12/17/24 08:40 Rocephin/D5w 1gm Iv Premix IV 12/23/24 08:59 100 mls/hr QDAY BIMAL Administration Dextrose 1,000 mls @ 75 mls/hr 12/17/24 10:30 12/17/24 10:28 D5w IV 12/17/24 23:49 75 mls/hr .[id number] ONE Administration Insulin Glargine 6 unit 12/17/24 21:00 Insulin Glargine (Lantus) 5 Unit/0.05 Ml (Per 5 Units) SC 01/16/25 20:59 HS BIMAL Insulin Human Lispro 0 unit 12/17/24 11:30 12/17/24 16:57 Insulin Lispro (Admelog) 1 Unit/0.01 Ml Unit SC 01/16/25 11:29 4 unit AC BIMAL Administration Protocol Morphine Sulfate 1 mg 12/15/24 15:15 12/17/24 12:34 Morphine Sulf Inj 10 Mg/Ml Vial IVP 12/20/24 15:14 1 mg Q4H PRN Administration PAIN SCALE 4-10(Mod-Sev Ondansetron HCl 4 mg 12/15/24 15:10 12/17/24 05:32 Ondansetron Inj 2 Mg/Ml Inj 2 Ml IV 01/14/25 15:09 4 mg Q6H PRN Administration NAUSEA OR VOMITING Protocol Pantoprazole Sodium 40 mg 12/16/24 09:00 12/17/24 08:41 Pantoprazole Inj 40 Mg Vial IVP 01/15/25 08:59 40 mg BID BIMAL Administration Plan 84-year-old female with past medical history of upper GI bleed, CVA, hypertension, hyperlipidemia, IDDM, right AKA, and peripheral artery disease was admitted to the ICU on 12/25/2024 for management of acute blood loss anemia with acute encephalopathy and anticipation for vasopressor support. #Hypernatremia -Sodium is 153 today and patient is started on D5W@75ml/hr -Repeat labs showed sodium of 148, stopped D5W and encouraged patient to take plenty of oral fluids -Will monitor electrolytes and correct accordingly #Acute blood loss anemia, resolved # 2/2 GI bleed from Gastric ulcers #Hematemesis Patient came in initially with complaints of bloody emesis Patient does have a history of previous upper GI bleed from possible gastric ulcers which were followed by endoscopy in [facility] Patient came in with hemoglobin of 4.7 from her baseline of 9.4 on 08/13/2024. Fecal occult blood was positive UGI endoscopy was done by Dr. Yates that revealed erosion at gastroesophageal junction, nonbleeding gastric ulcers with a clean ulcer base, multiple small ulcer measuring 9 to 10 mm in size, gastritis. Plan Patient was taking aspirin and Plavix, held for now Transfused 3 units of PRBC Continue Protonix On peptic ulcer diet #Emphysematous cystitis #UTI Abdomen/pelvis CT that shows severe emphysematous pattern with air in the urinary bladder wall UA showed bacteriuria Urine culture grew Raoutella ornithinolytica Blood cultures showed no growth after 48hrs Plan Continue patient on Rocephin 1 g daily [12/15/2024?] #Ulcer and left foot between 4th and 5th digit Patient's vascular surgeon wanted on CT abdomen with femoral runoff, but given patient's PIO we will likely need to wait after PIO has resolved Will continue doxycycline #PIO, improved Most likely prerenal in the setting of blood loss Patient came in with creatinine of 1.6 from her baseline of 1 Creatinine today 1.1 Avoid nephrotoxic agents Renally dose medications #Hx of CVA Patient was taking atorvastatin, Plavix, and aspirin Will hold off Plavix and aspirin for now in the setting of bleeding #Troponinemia, likely type II, resolved This is most likely demand ischemia in the setting of blood loss Patient's troponin was elevated at 0.219>>0.592>>0.235 EKG did not show any acute ST changes Echo showed moderate Aortic stenosis and EF 55-60 #Nonobstructing nephrolithiasis Abdomen/pelvis CT that show some nonobstructing nephrolithiasis #Severe constipation #Proctitis Abdomen/pelvis CT that shows some proctitis pattern as well as large amounts of stool within the rectosioid Hospital Maintenance: Diet: Peptic ulcer diet DVT ppx: held due to bleeding GI ppx: protonix IV lines: PIV Code status: Full Dispo: medsurg Patient plan of care was discussed with the attending physician, Dr. Prabhakar and senior resident Dr. Hakna Greenwood, PGY1 Attending Provider Attestation/Addendum I attest that I was physically present for the evaluation, physical examination, lab and imaging review of the patient with the residents. I discussed the case with the residents and agree with the findings and plans of care as documented above. Patient is an 84 years old female with past medical history of upper GI bleed, CVA, hypertension, hyperlipidemia, diabetes mellitus, right AKA and peripheral artery disease who was admitted to ICU for management of acute encephalopathy, acute blood loss anemia, GI bleeding with anticipation of vasopressor support. In the ICU, she started becoming more alert. Received 3 units of PRBC, follow- up hemoglobin was 9.7. EGD was done, she was found to have GE junction erosion and nonbleeding superficial gastric ulcers, gastritis. Her bladder pressure remained stable. She was hence transferred to medical floor for further management. At bedside today, patient appears alert, able to answer questions. Hemoglobin continues to be stable at 9.2. We will continue to monitor closely, patient continues to be on IV Protonix, started on peptic ulcer diet. Patient continues to be on IV Rocephin and doxycycline for emphysematous cystitis and foot ulcer. Urine culture grew Raoultella ornithinolytika, blood culture have been negative for 48 hours. Patient kidney function is improving. Sodium level noted to be 153 this morning, free water deficit of 0.8 L, accounting for insensible losses, we will start her on D5W at 75 cc/h. We will continue to monitor sodium level closely. Patient's troponin peaked at 0.592, likely type II. Yasmin Prabhakar MD
--- NOTE | 2024-12-17 17:06 | PC.SS ---
Rounding Note: Patient is an ICU downgrade. Plan is to monitor the patient's sodium level.
[2024-12-17 18:26] LABS: Sodium 148 mMol/L (136-145)
--- NOTE | 2024-12-17 19:23 | PD.IMPROG ---
Documentation for date of: 12/17/24 Subjective Subjective Interval history: Patient evaluated hemoglobin hematocrit 9.2 and 27.1 Exam Vital Signs Temp Pulse Resp BP Pulse Ox O2 Del Method O2 Flow Rate 97.6 F 94 15 157/71 H 95 Room Air 3 12/17/24 16:00 12/17/24 16:00 12/17/24 16:00 12/17/24 16:00 12/17/24 16:00 12/17/24 16:00 12/16/24 19:39 Objective Labs 12/17/24 05:40 12/17/24 18:02 Labs: Laboratory Results - last 24 hr 12/17/24 12/17/24 12/17/24 05:40 12:08 18:02 WBC 10.2 RBC 3.00 L Hgb 9.2 L Hct 27.1 L MCV 90 MCH 30.7 MCHC 33.9 RDW Std Deviation 57.2 H Plt Count 148 Neut % (Auto) 73 Lymph % (Auto) 18 [place] % (Auto) 6 Eos % (Auto) 0 Baso % (Auto) 0 Neut # (Auto) 7.5 Lymph # (Auto) 1.9 [place] # (Auto) 0.7 Eos # (Auto) 0.0 Baso # (Auto) 0.0 Immature Gran # (Auto) 0.19 H Absolute Nucleated RBC 0.08 H Immature Gran % 2 H Nucleated RBC % 1 H Sodium 153 H 148 H 148 H Potassium 3.5 Chloride 118 H Carbon Dioxide 21.8 Anion Gap 13 BUN 78 H Creatinine 1.1 Estim Creat Clear Calc 36.8 L eGFR 50 L BUN/Creatinine Ratio 71 H Glucose 216 H Calculated Osmolality 333 H Calcium 9.3 Corrected Calcium 9.7 Phosphorus 2.6 Magnesium 2.3 Total Bilirubin 0.3 AST 17 ALT 11 Alkaline Phosphatase 50 Troponin I 0.235 H* D Total Protein 5.7 Albumin 3.5 D Globulin 2.2 L Albumin/Globulin Ratio 1.6 Impressions Impression: Gastric ulcers distal esophageal ulcer/erosion continue Protonix continue to monitor CBC Assessment & Plan A&P Narrative # Hematemesis # Acute posthemorrhagic anemia plan agree with the blood transfusion consent will be obtained from the family for fiberoptic esophagogastroduodenoscopy with possible therapeutic intervention under intravenous moderate sedation possible biopsy Procedure has been scheduled for tomorrow afternoon IV Protonix Serial CBC Will follow the patient Other medical problems include Lactic acidosis PIO Stool impaction left colon Elevated BNP Resolving hypotension Elevated troponin 0.219 History of CVA Status post right AKA IDDM Essential hypertension Peripheral vascular disease Thank you very much for the opportunity to participate in care of this patient Time Spent With Patient Time: Total time spent is greater than 50% in coordination of care (as documented) at patient's floor/unit and/or counseling patient:
[2024-12-17] MEDS: INSULIN GLARGINE (Lantus) 5 UNIT/0.05 ML (PER 5 UNITS) 6 UNIT SC (20:26)
[2024-12-18] VITALS (9 sets, daily range): BP systolic 138–162; BP diastolic 52–70; PULSE 70–91; RESP 17–97; TEMP 36–36.6; O2SAT 92–97
[2024-12-18] MEDS: MORPHINE SULF INJ 10 MG/ML VIAL IVP ×3 (03:00→17:19)
[2024-12-18 06:07] LABS: Basophils % (Auto) 0 % (0-2.5); Eosinophils # (Auto) 0.2 Thou/mm3 (0.0-0.5); Eosinophils % (Auto) 2 % (0-10); Hematocrit 26.2 % (36.0-46.0); Immature Granulocytes % (Auto) 1 % (0-0); Immature Granulocytes Auto 0.07 Thou/mm3 (0.00-0.00); Lymphocytes # (Auto) 1.4 Thou/mm3 (1.0-4.8); Lymphocytes % (Auto) 13 % (10-50); Mean Corpuscular HGB Conc 31.7 g/dl (31.0-37.0); Mean Corpuscular Hemoglobin 29.9 pg (25.0-35.0); Mean Corpuscular Volume 94 fL (80-100); Monocytes # (Auto) 0.6 Thou/mm3 (0.0-0.8); Monocytes % (Auto) 6 % (0-12); Neutrophils # (Auto) 8.3 Thou/mm3 (1.8-7.7); Neutrophils % (Auto) 78 % (37-80); Nucleated Red Blood Cell # 0.04 Thou/mm3 (0.00-0.00); Nucleated Red Blood Cell % 0 /100 WBC (0); Platelet Count 140 Thou/mm3 (140-440); RDW Standard Deviation 58.7 fL (36.4-46.3); Red Blood Count 2.78 Miln/mm3 (4.00-5.20); White Blood Count 10.7 Thou/mm3 (3.6-11.0)
[2024-12-18 06:31] LABS: Alanine Aminotransferase 12 U/L (10-49); Albumin, Serum 3.2 gm/dL (3.4-4.8); Albumin/Globulin Ratio 1.5 (1.2-2.2); Alkaline Phosphatase 52 U/L (46-116); Anion Gap 8 (7-16); Aspartate Amino Transferase 17 U/L (0-34); BUN/Creatinine Ratio 58 Ratio (12-20); Bilirubin,Total 0.3 mg/dL (0.3-1.2); Blood Urea Nitrogen 58 mg/dL (9-23); Calcium (Corrected) 9.6 mg/dL (8.5-10.1); Carbon Dioxide 25.1 mMol/L (20.0-31.0); Chloride 114 mMol/L (98-107); Estimated Creatinine Clearance 41.9 mL/min (>60); Globulin 2.1 gm/dL (2.3-3.5); Glucose 214 mg/dL (74-106); Osmolality,Calculated 314 (275-295); Phosphorous 1.7 mg/dL (2.4-5.1); Potassium 3.9 mMol/L (3.4-5.1); Sodium 147 mMol/L (136-145); Total Protein 5.3 gm/dL (5.7-8.2); eGFR 56 See Note
[2024-12-18 06:39] LABS: Hemoglobin 8.3 g/dL (12.0-16.0)
[2024-12-18] MEDS: INSULIN LISPRO (AdmeLOG) 1 UNIT/0.01 ML UNIT SC ×3 (07:22→17:20)
[2024-12-18] MEDS: cefTRIAXone/D5w 1gm IV premix 1 GM/50 ML BAG IV (08:35)
[2024-12-18] MEDS: PANTOPRAZOLE INJ 40 MG VIAL IVP ×2 (08:35→20:54)
[2024-12-18] MEDS: DOXYCYCLINE INJ 100 MG in SODIUM CHLORIDE 0.9% (POP) 100 ML IV ×2 (08:35→20:55)
--- NOTE | 2024-12-18 08:40 | PC.CM ---
Patient is opened to [facility].
[2024-12-18] MEDS: POTASSIUM PHOS 22.5 MMOL in SODIUM CHLORIDE 0.9% 500 ML 500 ML 82.778 MMOL IV (08:57)
[2024-12-18] MEDS: INSULIN GLARGINE (Lantus) 5 UNIT/0.05 ML (PER 5 UNITS) 4 UNIT SC (08:58)
[2024-12-18] MEDS: Silvasorb Gel 45 ML TUBE TOP (11:37)
--- NOTE | 2024-12-18 13:33 | ESPR_ITS ---
Documentation for date of: 12/18/24 Subjective Subjective Interval history: Patient was seen and examined at bedside. No acute overnight events. Patient reports she has some difficulty swallowing likely related to recent ICU stay, her diet was modified to dysphagia 1. Her glucose was elevated and glargine was increased to 10 units. Electrolytes were repleted. Caregiver at the bedside reporting that Dr. Buck was asking to do CT abdomen with contrast runoff but due to recent PIO primary team contacted Dr. Buck and decided to postpone contrast studies. Her sodium was 147 and she is on D5W at 75 cc/h, will repeat sodium afternoon and adjust IVF accordingly. Exam Vital Signs Temp Pulse Resp BP Pulse Ox O2 Del Method O2 Flow Rate 97.4 F 89 20 150/70 H 94 L Room Air 3 12/18/24 12:00 12/18/24 12:00 12/18/24 12:00 12/18/24 12:00 12/18/24 12:00 12/18/24 12:00 12/16/24 19:39 Narrative Exam Gen: Well-developed and well-nourished elderly female. HEENT: NCAT, PERRLA, EOMI, MMM, anicteric conjunctivae. CVS: normal S1 and S2. RRR. Systolic murmur in aortic area. Resp: CTA B/L. No rhonchi, rales, crackles or wheezing. Abd: soft, non-tender, non-distended. BS+ in all 4 quadrants. MSK: Right AKA. No edema or rash. Neuro: CN II-XII grossly intact. Alert and oriented x2. Objective Labs 12/18/24 05:00 12/18/24 13:00 Labs: Laboratory Results - last 24 hr 12/17/24 12/18/24 18:02 05:00 WBC 10.7 RBC 2.78 L Hgb 8.3 L Hct 26.2 L MCV 94 MCH 29.9 MCHC 31.7 RDW Std Deviation 58.7 H Plt Count 140 Neut % (Auto) 78 Lymph % (Auto) 13 [place] % (Auto) 6 Eos % (Auto) 2 Baso % (Auto) 0 Neut # (Auto) 8.3 H Lymph # (Auto) 1.4 [place] # (Auto) 0.6 Eos # (Auto) 0.2 Baso # (Auto) 0.0 Immature Gran # (Auto) 0.07 H Absolute Nucleated RBC 0.04 H Immature Gran % 1 H Nucleated RBC % 0 Sodium 148 H 147 H Potassium 3.9 Chloride 114 H Carbon Dioxide 25.1 Anion Gap 8 BUN 58 H Creatinine 1.0 Estim Creat Clear Calc 41.9 L eGFR 56 L BUN/Creatinine Ratio 58 H Glucose 214 H Calculated Osmolality 314 H Calcium 9.0 Corrected Calcium 9.6 Phosphorus 1.7 L Magnesium 2.0 Total Bilirubin 0.3 AST 17 ALT 12 Alkaline Phosphatase 52 Total Protein 5.3 L Albumin 3.2 L Globulin 2.1 L Albumin/Globulin Ratio 1.5 Quality Measures Quality Measures none Advance care planning discussed with:: patient Assessment & Plan Assessment Current Active Medications: Generic Name Dose Route Start Last Admin Trade Name Freq PRN Reason Stop Dose Admin Acetaminophen 650 mg 12/15/24 15:10 Acetaminophen Supp 650 Mg Supp [place] 01/14/25 15:09 Q6HR PRN pain(1-3) and Fever > 100.4 Dextrose 25 ml 12/15/24 15:15 Dextrose 50%-Water Inj 50 Ml Syringe IV 01/14/25 15:14 Q15MIN PRN BG 50-70 responsive npo pt Dextrose 50 ml 12/15/24 15:15 Dextrose 50%-Water Inj 50 Ml Syringe IV 01/14/25 15:14 Q15MIN PRN BG <50 OR BG <70 & pt unresponsive Glucagon 1 mg 12/15/24 15:15 Glucagon Inj 1 Mg Vial IM Q15MIN PRN BG <70, and no IV access Doxycycline Hyclate 100 mg/ 100 mls @ 100 mls/hr 12/15/24 21:00 12/18/24 08:35 Sodium Chloride IV 12/22/24 20:59 100 mls/hr BID BIMAL Administration Ceftriaxone Sodium/Dextrose 1 gm in 50 mls @ 100 mls/hr 12/16/24 09:00 12/18/24 08:35 Rocephin/D5w 1gm Iv Premix IV 12/23/24 08:59 100 mls/hr QDAY BIMAL Administration Potassium Phosphate 22.5 mmol/ 507.5 mls @ 82.778 mls/hr 12/18/24 08:05 12/18/24 08:57 Sodium Chloride IV 12/18/24 14:12 82.778 mls/hr X1 ONE Administration Insulin Glargine 10 unit 12/18/24 21:00 Insulin Glargine (Lantus) 5 Unit/0.05 Ml (Per 5 Units) SC 01/17/25 20:59 HS [facility] Insulin Human Lispro 0 unit 12/17/24 11:30 12/18/24 11:38 Insulin Lispro (Admelog) 1 Unit/0.01 Ml Unit SC 01/16/25 11:29 2 unit AC [facility] Administration Protocol Morphine Sulfate 1 mg 12/15/24 15:15 12/18/24 10:12 Morphine Sulf Inj 10 Mg/Ml Vial IVP 12/20/24 15:14 1 mg Q4H PRN Administration PAIN SCALE 4-10(Mod-Sev Ondansetron HCl 4 mg 12/15/24 15:10 12/17/24 05:32 Ondansetron Inj 2 Mg/Ml Inj 2 Ml IV 01/14/25 15:09 4 mg Q6H PRN Administration NAUSEA OR VOMITING Protocol Pantoprazole Sodium 40 mg 12/16/24 09:00 12/18/24 08:35 Pantoprazole Inj 40 Mg Vial IVP 01/15/25 08:59 40 mg BID [facility] Administration Plan 84-year-old female with past medical history of upper GI bleed, CVA, hypertension, hyperlipidemia, IDDM, right AKA, and peripheral artery disease was admitted to the ICU on 12/25/2024 for management of acute blood loss anemia with acute encephalopathy and anticipation for vasopressor support. #Hypernatremia. -Sodium is 153 today and patient is started on D5W@75ml/hr Plan: -Repeat labs showed sodium of 147, continue D5W and repeat Na afternoon. -Will monitor electrolytes and correct accordingly. #Dysphagia. -reported today, likely due to recent ICU stay, diet modified to dysphagia I. Will notify GI. #Acute blood loss anemia, resolved. # 2/2 GI bleed from Gastric ulcers. #Hematemesis. Patient came in initially with complaints of bloody emesis Patient does have a history of previous upper GI bleed from possible gastric ulcers which were followed by endoscopy in [facility] Patient came in with hemoglobin of 4.7 from her baseline of 9.4 on 08/13/2024. Fecal occult blood was positive UGI endoscopy was done by Dr. Yates that revealed erosion at gastroesophageal junction, nonbleeding gastric ulcers with a clean ulcer base, multiple small ulcer measuring 9 to 10 mm in size, gastritis. Plan Patient was taking aspirin and Plavix, held for now Transfused 3 units of PRBC Continue Protonix On peptic ulcer diet #Emphysematous cystitis. #UTI. Abdomen/pelvis CT that shows severe emphysematous pattern with air in the urinary bladder wall UA showed bacteriuria Urine culture grew Raoutella ornithinolytica Blood cultures showed no growth after 48hrs Plan Continue patient on Rocephin 1 g daily [12/15/2024?] #Ulcer and left foot between 4th and 5th digit. Patient's vascular surgeon wanted on CT abdomen with femoral runoff, but given patient's PIO we will likely need to wait after PIO has resolved Will continue doxycycline #PIO, improved. Most likely prerenal in the setting of blood loss Patient came in with creatinine of 1.6 from her baseline of 1 Creatinine today 1.1 Avoid nephrotoxic agents Renally dose medications #Hx of CVA. Patient was taking atorvastatin, Plavix, and aspirin Will hold off Plavix and aspirin for now in the setting of bleeding #Troponinemia, likely type II, resolved. This is most likely demand ischemia in the setting of blood loss Patient's troponin was elevated at 0.219>>0.592>>0.235 EKG did not show any acute ST changes Echo showed moderate Aortic stenosis and EF 55-60 #Nonobstructing nephrolithiasis. Abdomen/pelvis CT that show some nonobstructing nephrolithiasis #Severe constipation. #Proctitis. Abdomen/pelvis CT that shows some proctitis pattern as well as large amounts of stool within the rectosigmoid Diet: Peptic ulcer diet DVT ppx: held due to bleeding GI ppx: protonix IV lines: PIV Code status: Full Dispo: medsur Patient plan of care was discussed with the attending physician, Dr. Prabhakar. Agustín Mcclendon MD, PGY 2. Disclaimer: This note was dictated by speech recognition. Minor errors in broadcast operations engineer may be present due to voice recognition software. Attending Provider Attestation/Addendum I attest that I was physically present for the evaluation, physical examination, lab and imaging review of the patient with the residents. I discussed the case with the residents and agree with the findings and plans of care as documented above. At bedside today, patient is states she is feeling well and denies new complaints. She was complaining of difficulty swallowing and having decreased oral intake. We will switch her diet to dysphagia 1. Urine culture grew Raoutella ornithinolytica, sensitive to Rocephin. Blood culture showed no growth in 48 hours. Kidney function has been improving, BUN/creatinine of 58/1.0 today. Sodium level noted to have improved 147, we will continue with D5W and monitor electrolyte closely. Hemoglobin decreased slightly from 9.2-8.3 today, no evidence of active bleeding, we will monitor closely. If patient's sodium level improves and she remains stable, we will plan for discharge tomorrow. Yasmin Prabhakar MD
[2024-12-18 14:12] LABS: Albumin, Serum 3.2 gm/dL (3.4-4.8); Anion Gap 8 (7-16); BUN/Creatinine Ratio 53 Ratio (12-20); Blood Urea Nitrogen 53 mg/dL (9-23); Calcium 8.7 mg/dL (8.3-10.6); Calcium (Corrected) 9.3 mg/dL (8.5-10.1); Carbon Dioxide 23.7 mMol/L (20.0-31.0); Chloride 115 mMol/L (98-107); Estimated Creatinine Clearance 41.5 mL/min (>60); Glucose 193 mg/dL (74-106); Osmolality,Calculated 311 (275-295); Phosphorous 3.7 mg/dL (2.4-5.1); Potassium 4.4 mMol/L (3.4-5.1); Sodium 147 mMol/L (136-145); eGFR 56 See Note
[2024-12-18] MEDS: DEXTROSE 5%-WATER 1,000 ML 75 ML IV (15:19)
--- NOTE | 2024-12-18 17:31 | PD.IMPROG ---
Documentation for date of: 12/18/24 Subjective Subjective Interval history: Patient evaluated Hemoglobin hematocrit 8.3 and 26.2 Complains of dysphagia Spoke with the daughter in the room Dysphagia is quite apparent which happened very suddenly She is struggling even with soft foods and dysphagia diet Exam Vital Signs Temp Pulse Resp BP Pulse Ox O2 Del Method O2 Flow Rate 97.7 F 90 18 162/65 H 97 Room Air 3 12/18/24 16:00 12/18/24 16:00 12/18/24 16:00 12/18/24 16:00 12/18/24 16:00 12/18/24 16:00 12/16/24 19:39 Objective Labs 12/18/24 05:00 12/18/24 13:00 Labs: Laboratory Results - last 24 hr 12/17/24 12/18/24 12/18/24 18:02 05:00 13:00 WBC 10.7 RBC 2.78 L Hgb 8.3 L Hct 26.2 L MCV 94 MCH 29.9 MCHC 31.7 RDW Std Deviation 58.7 H Plt Count 140 Neut % (Auto) 78 Lymph % (Auto) 13 [place] % (Auto) 6 Eos % (Auto) 2 Baso % (Auto) 0 Neut # (Auto) 8.3 H Lymph # (Auto) 1.4 [place] # (Auto) 0.6 Eos # (Auto) 0.2 Baso # (Auto) 0.0 Immature Gran # (Auto) 0.07 H Absolute Nucleated RBC 0.04 H Immature Gran % 1 H Nucleated RBC % 0 Sodium 148 H 147 H 147 H Potassium 3.9 4.4 D Chloride 114 H 115 H Carbon Dioxide 25.1 23.7 Anion Gap 8 8 BUN 58 H 53 H Creatinine 1.0 1.0 Estim Creat Clear Calc 41.9 L 41.5 L eGFR 56 L 56 L BUN/Creatinine Ratio 58 H 53 H Glucose 214 H 193 H Calculated Osmolality 314 H 311 H Calcium 9.0 8.7 Corrected Calcium 9.6 9.3 Phosphorus 1.7 L 3.7 Magnesium 2.0 Total Bilirubin 0.3 AST 17 ALT 12 Alkaline Phosphatase 52 Total Protein 5.3 L Albumin 3.2 L 3.2 L Globulin 2.1 L Albumin/Globulin Ratio 1.5 Impressions Impression: Esophageal ulcers Dysphagia Plan N.p.o. midnight tonight Consent obtained for fiberoptic esophagogastroduodenoscopy with possible esophageal dilatation with either esophageal balloon or guidewire savory dilatation Procedure scheduled for tomorrow N.p.o. midnight tonight except meds Assessment & Plan A&P Narrative # Hematemesis # Acute posthemorrhagic anemia plan agree with the blood transfusion consent will be obtained from the family for fiberoptic esophagogastroduodenoscopy with possible therapeutic intervention under intravenous moderate sedation possible biopsy Procedure has been scheduled for tomorrow afternoon IV Protonix Serial CBC Will follow the patient Other medical problems include Lactic acidosis PIO Stool impaction left colon Elevated BNP Resolving hypotension Elevated troponin 0.219 History of CVA Status post right AKA IDDM Essential hypertension Peripheral vascular disease Thank you very much for the opportunity to participate in care of this patient Time Spent With Patient Time: Total time spent is greater than 50% in coordination of care (as documented) at patient's floor/unit and/or counseling patient:
--- NOTE | 2024-12-18 18:42 | PC.NURSE ---
Made MD Banks aware of pts current bp 162/65-90 HR. Per MD give 10mg hydralazine x1 if bp becomes Systolic >180.
[2024-12-18] MEDS: INSULIN GLARGINE (Lantus) 5 UNIT/0.05 ML (PER 5 UNITS) 10 UNIT SC (21:15)
[2024-12-19] VITALS (21 sets, daily range): BP systolic 131–175; BP diastolic 46–101; PULSE 71–94; RESP 14–21; TEMP 36.1–37.1; O2SAT 93–100
[2024-12-19] MEDS: ONDANSETRON INJ 2 MG/ML INJ 2 ML 4 MG IV (00:28)
[2024-12-19] MEDS: DEXTROSE 5%-WATER 1,000 ML 75 ML IV (04:12)
[2024-12-19] MEDS: INSULIN LISPRO (AdmeLOG) 1 UNIT/0.01 ML UNIT SC ×2 (07:30→17:09)
[2024-12-19] MEDS: DOXYCYCLINE INJ 100 MG in SODIUM CHLORIDE 0.9% (POP) 100 ML IV ×2 (08:31→20:46)
[2024-12-19] MEDS: PANTOPRAZOLE INJ 40 MG VIAL IVP ×2 (08:31→20:47)
[2024-12-19] MEDS: cefTRIAXone/D5w 1gm IV premix 1 GM/50 ML BAG IV (08:31)
[2024-12-19] MEDS: Silvasorb Gel 45 ML TUBE TOP (08:32)
[2024-12-19 08:38] LABS: Alanine Aminotransferase 9 U/L (10-49); Albumin, Serum 2.9 gm/dL (3.4-4.8); Albumin/Globulin Ratio 1.4 (1.2-2.2); Alkaline Phosphatase 55 U/L (46-116); Anion Gap 6 (7-16); Aspartate Amino Transferase 14 U/L (0-34); BUN/Creatinine Ratio 41 Ratio (12-20); Bilirubin,Total 0.4 mg/dL (0.3-1.2); Blood Urea Nitrogen 33 mg/dL (9-23); Calcium 8.4 mg/dL (8.3-10.6); Calcium (Corrected) 9.3 mg/dL (8.5-10.1); Carbon Dioxide 24.6 mMol/L (20.0-31.0); Chloride 112 mMol/L (98-107); Creatinine (Component) 0.8 mg/dL (0.6-1.3); Estimated Creatinine Clearance 52.1 mL/min (>60); Globulin 2.1 gm/dL (2.3-3.5); Glucose 224 mg/dL (74-106); Osmolality,Calculated 299 (275-295); Potassium 3.8 mMol/L (3.4-5.1); Sodium 143 mMol/L (136-145); eGFR > 60 See Note
[2024-12-19 08:43] LABS: Basophils % (Auto) 0 % (0-2.5); Eosinophils # (Auto) 0.4 Thou/mm3 (0.0-0.5); Eosinophils % (Auto) 5 % (0-10); Hematocrit 24.2 % (36.0-46.0); Immature Granulocytes % (Auto) 1 % (0-0); Immature Granulocytes Auto 0.05 Thou/mm3 (0.00-0.00); Lymphocytes % (Auto) 13 % (10-50); Mean Corpuscular HGB Conc 33.1 g/dl (31.0-37.0); Mean Corpuscular Volume 94 fL (80-100); Monocytes # (Auto) 0.5 Thou/mm3 (0.0-0.8); Monocytes % (Auto) 6 % (0-12); Neutrophils # (Auto) 6.3 Thou/mm3 (1.8-7.7); Neutrophils % (Auto) 76 % (37-80); Nucleated Red Blood Cell % 0 /100 WBC (0); Platelet Count 136 Thou/mm3 (140-440); RDW Standard Deviation 57.2 fL (36.4-46.3); Red Blood Count 2.58 Miln/mm3 (4.00-5.20); White Blood Count 8.2 Thou/mm3 (3.6-11.0)
[2024-12-19] MEDS: METOPROLOL TARTRATE 25 MG TABLET PO ×2 (09:56→20:47)
[2024-12-19] MEDS: MORPHINE SULF INJ 10 MG/ML VIAL IVP ×2 (10:01→21:00)
[2024-12-19] MEDS: LOSARTAN POTASSIUM 25 MG TABLET PO (14:16)
--- NOTE | 2024-12-19 15:26 | PD.RESPRO ---
Documentation for date of: 12/19/24 Subjective Subjective Interval history: Patient is seen and examined at bedside No acute overnight events. Complaining of pain at the site of IV line insertion Vitals are stable except for mildly elevated blood pressures. Physical examination remains unchanged, murmurs noted Patient underwent upper GI endoscopy by Dr. Yates and found to have esophageal stenosis and dilatation was done Will monitor patient's condition for today, planning to discharge tomorrow Exam Vital Signs Temp Pulse Resp BP Pulse Ox O2 Del Method O2 Flow Rate 98.8 F 94 17 131/55 H 94 L Room Air 3 12/19/24 15:24 12/19/24 15:24 12/19/24 15:24 12/19/24 15:24 12/19/24 15:24 12/19/24 13:45 12/19/24 13:20 Narrative Exam General: Awake. HEENT: Normocephalic, atraumatic, mucous membranes moist. Heart: Regular rate and rhythm, ejection systolic murmur in aortic area Lungs: Clear to auscultation with no wheezing or crackles. Abdomen: Soft, nondistended, nontender, positive bowel sounds. ?No guarding or rebound tenderness. Neurologic: Alert and oriented x3, no gross neurological deficit, and patient able to move all 4 extremities. Extremities: No edema. 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 Objective Labs 12/19/24 07:45 12/19/24 07:45 Labs: Laboratory Results - last 24 hr 12/19/24 07:45 WBC 8.2 RBC 2.58 L Hgb 8.0 L Hct 24.2 L MCV 94 MCH 31.0 MCHC 33.1 RDW Std Deviation 57.2 H Plt Count 136 L Neut % (Auto) 76 Lymph % (Auto) 13 [place] % (Auto) 6 Eos % (Auto) 5 Baso % (Auto) 0 Neut # (Auto) 6.3 Lymph # (Auto) 1.0 [place] # (Auto) 0.5 Eos # (Auto) 0.4 Baso # (Auto) 0.0 Immature Gran # (Auto) 0.05 H Absolute Nucleated RBC 0.00 Immature Gran % 1 H Nucleated RBC % 0 Sodium 143 Potassium 3.8 D Chloride 112 H Carbon Dioxide 24.6 Anion Gap 6 L BUN 33 H Creatinine 0.8 Estim Creat Clear Calc 52.1 L eGFR > 60 BUN/Creatinine Ratio 41 H Glucose 224 H Calculated Osmolality 299 H Calcium 8.4 Corrected Calcium 9.3 Total Bilirubin 0.4 AST 14 ALT 9 L Alkaline Phosphatase 55 Total Protein 5.0 L Albumin 2.9 L Globulin 2.1 L Albumin/Globulin Ratio 1.4 Quality Measures Quality Measures none Advance care planning discussed with:: patient and child Assessment & Plan Assessment Current Active Medications: Generic Name Dose Route Start Last Admin Trade Name Freq PRN Reason Stop Dose Admin Acetaminophen 650 mg 12/15/24 15:10 Acetaminophen Supp 650 Mg Supp [place] 01/14/25 15:09 Q6HR PRN pain(1-3) and Fever > 100.4 Dextrose 25 ml 12/15/24 15:15 Dextrose 50%-Water Inj 50 Ml Syringe IV 01/14/25 15:14 Q15MIN PRN BG 50-70 responsive npo pt Dextrose 50 ml 12/15/24 15:15 Dextrose 50%-Water Inj 50 Ml Syringe IV 01/14/25 15:14 Q15MIN PRN BG <50 OR BG <70 & pt unresponsive Glucagon 1 mg 12/15/24 15:15 Glucagon Inj 1 Mg Vial IM Q15MIN PRN BG <70, and no IV access Hydralazine HCl 10 mg 12/18/24 18:48 Hydralazine Inj 20 Mg/Ml Vial IV 12/19/24 18:47 X1 PRN for systolic >180 Doxycycline Hyclate 100 mg/ 100 mls @ 100 mls/hr 12/15/24 21:00 12/19/24 08:31 Sodium Chloride IV 12/22/24 20:59 100 mls/hr BID BIMAL Administration Ceftriaxone Sodium/Dextrose 1 gm in 50 mls @ 100 mls/hr 12/16/24 09:00 12/19/24 08:31 Rocephin/D5w 1gm Iv Premix IV 12/23/24 08:59 100 mls/hr QDAY BIMAL Administration Insulin Glargine 10 unit 12/18/24 21:00 12/18/24 21:15 Insulin Glargine (Lantus) 5 Unit/0.05 Ml (Per 5 Units) SC 01/17/25 20:59 10 unit HS BIMAL Administration Insulin Human Lispro 0 unit 12/17/24 11:30 12/19/24 11:38 Insulin Lispro (Admelog) 1 Unit/0.01 Ml Unit SC 01/16/25 11:29 Not Given AC [facility] Protocol Losartan Potassium 25 mg 12/19/24 14:15 12/19/24 14:16 Losartan Potassium 25 Mg Tablet PO 01/18/25 14:14 25 mg QDAY BIMAL Administration Metoprolol Tartrate 25 mg 12/19/24 09:45 12/19/24 09:56 Metoprolol Tartrate 25 Mg Tablet PO 01/18/25 09:44 25 mg BID BIMAL Administration Morphine Sulfate 1 mg 12/15/24 15:15 12/19/24 10:01 Morphine Sulf Inj 10 Mg/Ml Vial IVP 12/20/24 15:14 1 mg Q4H PRN Administration PAIN SCALE 4-10(Mod-Sev Ondansetron HCl 4 mg 12/15/24 15:10 12/19/24 00:28 Ondansetron Inj 2 Mg/Ml Inj 2 Ml IV 01/14/25 15:09 4 mg Q6H PRN Administration NAUSEA OR VOMITING Protocol Pantoprazole Sodium 40 mg 12/16/24 09:00 12/19/24 08:31 Pantoprazole Inj 40 Mg Vial IVP 01/15/25 08:59 40 mg BID BIMAL Administration Plan 84-year-old female with past medical history of upper GI bleed, CVA, hypertension, hyperlipidemia, IDDM, right AKA, and peripheral artery disease was admitted to the ICU on 12/25/2024 for management of acute blood loss anemia with acute encephalopathy and anticipation for vasopressor support. # Dysphagia -Patient complained of difficulty in swallowing for which patient underwent upper GI endoscopy by Dr. Yates -Found to have esophageal stenosis and underwent dilatation -Also found to have a whitish plaque for which nystatin 5 mL p.o. 3 times daily is started #Hypernatremia, resolved -Sodium is 143 today and encouraged to take plenty of oral fluids -Will monitor electrolytes and correct accordingly #Acute blood loss anemia, resolved # 2/2 GI bleed from Gastric ulcers #Hematemesis Patient came in initially with complaints of bloody emesis Patient does have a history of previous upper GI bleed from possible gastric ulcers which were followed by endoscopy in [facility] Patient came in with hemoglobin of 4.7 from her baseline of 9.4 on 08/13/2024. Fecal occult blood was positive UGI endoscopy was done by Dr. Yates that revealed erosion at gastroesophageal junction, nonbleeding gastric ulcers with a clean ulcer base, multiple small ulcer measuring 9 to 10 mm in size, gastritis. Plan Patient was taking aspirin and Plavix, held for now Transfused 3 units of PRBC Continue Protonix On peptic ulcer diet #Emphysematous cystitis #UTI Abdomen/pelvis CT that shows severe emphysematous pattern with air in the urinary bladder wall UA showed bacteriuria Urine culture grew Raoutella ornithinolytica Blood cultures showed no growth after 48hrs Plan Continue patient on Rocephin 1 g daily [12/15/2024?] #Ulcer and left foot between 4th and 5th digit Patient's vascular surgeon wanted on CT abdomen with femoral runoff, but given patient's PIO we will likely need to wait after PIO has resolved Will continue doxycycline #PIO, improved Most likely prerenal in the setting of blood loss Patient came in with creatinine of 1.6 from her baseline of 1 Creatinine today 1.1 Avoid nephrotoxic agents Renally dose medications #Hx of CVA Patient was taking atorvastatin, Plavix, and aspirin Will hold off Plavix and aspirin for now in the setting of bleeding #Troponinemia, likely type II, resolved This is most likely demand ischemia in the setting of blood loss Patient's troponin was elevated at 0.219>>0.592>>0.235 EKG did not show any acute ST changes Echo showed moderate Aortic stenosis and EF 55-60 #Nonobstructing nephrolithiasis Abdomen/pelvis CT that show some nonobstructing nephrolithiasis #Severe constipation #Proctitis Abdomen/pelvis CT that shows some proctitis pattern as well as large amounts of stool within the rectosigmoid Hospital Maintenance: Diet: Peptic ulcer diet DVT ppx: held due to bleeding GI ppx: protonix IV lines: PIV Code status: Full Dispo: medsurg Patient plan of care was discussed with the attending physician, Dr. Aki Greenwood, PGY1 Attending Provider Attestation/Addendum I attest that I was physically present for the evaluation, physical examination, lab and imaging review of the patient with the residents. I discussed the case with the residents and agree with the findings and plans of care as documented above. At bedside, patient appears comfortable.? Denies any new complaints.? She has not been able to good oral intake due to dysphagia.? Patient underwent EGD today, was found to have esophagitis and benign stricture which was dilated.? Has been restarted on diet, we will monitor for oral intake.? Blood pressure noted to be high this morning 151/67, we will start her on home metoprolol.? Blood pressure continues to be high despite the metoprolol, we will add losartan as well. Hemoglobin has been stable.? Kidney function is improving.? Glucose level is high this morning at 224, likely due to D5W.? Patient's sodium level has improved to normal level, 143 today, we will discontinue the D5W.? Plan for DC tomorrow, if patient is able to tolerate her diet well. Yasmin Prabhakar MD
[2024-12-19] MEDS: NYSTATIN SUSP 5 ML UDC PO ×2 (15:53→20:47)
[2024-12-19 18:55] LABS: Sodium 143 mMol/L (136-145)
[2024-12-19] MEDS: INSULIN GLARGINE (Lantus) 5 UNIT/0.05 ML (PER 5 UNITS) 10 UNIT SC (20:43)
[2024-12-20] VITALS (10 sets, daily range): BP systolic 103–164; BP diastolic 51–78; PULSE 62–82; RESP 16–21; TEMP 36.1–36.9; O2SAT 93–97
[2024-12-20 05:13] LABS: Basophils % (Auto) 0 % (0-2.5); Eosinophils # (Auto) 0.5 Thou/mm3 (0.0-0.5); Eosinophils % (Auto) 6 % (0-10); Hematocrit 24.2 % (36.0-46.0); Immature Granulocytes % (Auto) 1 % (0-0); Immature Granulocytes Auto 0.04 Thou/mm3 (0.00-0.00); Lymphocytes # (Auto) 1.2 Thou/mm3 (1.0-4.8); Lymphocytes % (Auto) 15 % (10-50); Mean Corpuscular HGB Conc 32.2 g/dl (31.0-37.0); Mean Corpuscular Hemoglobin 31.3 pg (25.0-35.0); Mean Corpuscular Volume 97 fL (80-100); Monocytes # (Auto) 0.5 Thou/mm3 (0.0-0.8); Monocytes % (Auto) 6 % (0-12); Neutrophils # (Auto) 5.7 Thou/mm3 (1.8-7.7); Neutrophils % (Auto) 72 % (37-80); Nucleated Red Blood Cell % 0 /100 WBC (0); Platelet Count 133 Thou/mm3 (140-440); RDW Standard Deviation 57.7 fL (36.4-46.3); Red Blood Count 2.49 Miln/mm3 (4.00-5.20); White Blood Count 7.9 Thou/mm3 (3.6-11.0)
[2024-12-20 05:17] LABS: Hemoglobin 7.8 g/dL (12.0-16.0)
[2024-12-20] MEDS: NYSTATIN SUSP 5 ML UDC PO ×3 (05:38→21:16)
[2024-12-20 05:46] LABS: Alanine Aminotransferase 9 U/L (10-49); Albumin, Serum 2.9 gm/dL (3.4-4.8); Albumin/Globulin Ratio 1.5 (1.2-2.2); Alkaline Phosphatase 56 U/L (46-116); Anion Gap 6 (7-16); Aspartate Amino Transferase 14 U/L (0-34); BUN/Creatinine Ratio 34 Ratio (12-20); Bilirubin,Total 0.4 mg/dL (0.3-1.2); Blood Urea Nitrogen 24 mg/dL (9-23); Calcium 8.5 mg/dL (8.3-10.6); Calcium (Corrected) 9.4 mg/dL (8.5-10.1); Carbon Dioxide 24.3 mMol/L (20.0-31.0); Chloride 113 mMol/L (98-107); Creatinine (Component) 0.7 mg/dL (0.6-1.3); Estimated Creatinine Clearance 61.1 mL/min (>60); Glucose 123 mg/dL (74-106); Osmolality,Calculated 289 (275-295); Potassium 3.9 mMol/L (3.4-5.1); Sodium 143 mMol/L (136-145); Total Protein 4.9 gm/dL (5.7-8.2); eGFR > 60 See Note
[2024-12-20] MEDS: METOPROLOL TARTRATE 25 MG TABLET PO ×2 (08:18→21:17)
[2024-12-20] MEDS: PANTOPRAZOLE INJ 40 MG VIAL IVP ×2 (08:18→21:16)
[2024-12-20] MEDS: cefTRIAXone/D5w 1gm IV premix 1 GM/50 ML BAG IV (08:18)
[2024-12-20] MEDS: LOSARTAN POTASSIUM 25 MG TABLET PO (08:18)
[2024-12-20] MEDS: MORPHINE SULF INJ 10 MG/ML VIAL IVP (08:36)
[2024-12-20] MEDS: Silvasorb Gel 45 ML TUBE TOP (08:40)
[2024-12-20] MEDS: DOXYCYCLINE INJ 100 MG in SODIUM CHLORIDE 0.9% (POP) 100 ML IV ×2 (08:54→21:16)
[2024-12-20] MEDS: METOCLOPRAMIDE INJ 5 MG/ML VIAL 2 ML 2.5 MG IVP (11:26)
--- NOTE | 2024-12-20 14:22 | PC.SS ---
SS follow up note; Patient not tolerating oral diet, discharge home possibly tomorrow.
[2024-12-20] MEDS: INSULIN LISPRO (AdmeLOG) 1 UNIT/0.01 ML UNIT SC (16:43)
--- NOTE | 2024-12-20 17:04 | ESPR_ITS ---
<Statement entered by Agustín Mcclendon MD - 12/22/24 07:58> Senior Resident Attestation: I supervised/discussed management plan with internal medicine nurse physician Dr. Greenwood, and was involved in the care of this patient. I personally saw and examined the patient and discussed the assessment and plan with the entire medicine team, including my attending. I agree with the assessment and plan as documented. Patient's care was discussed with attending physician, Dr. Prabhakar. Agustín Mcclendon MD PGY-2. Documentation for date of: 12/20/24 Subjective Subjective Interval history: Patient is seen and examined at bedside No acute overnight events. Complaining of decreased appetite, but reported that her dysphagia is resolved Vitals are stable. Physical examination remains unchanged Yesterday labs showed hemoglobin 7.8 Started on mirtazapine. Planning to discharge tomorrow Exam Vital Signs Temp Pulse Resp BP Pulse Ox O2 Del Method O2 Flow Rate 98.1 F 82 17 126/52 L 93 L Room Air 3 12/20/24 16:00 12/20/24 16:00 12/20/24 16:00 12/20/24 16:00 12/20/24 16:00 12/20/24 16:00 12/19/24 16:00 Narrative Exam General: Awake. HEENT: Normocephalic, atraumatic, mucous membranes moist. Heart: Regular rate and rhythm, ejection systolic murmur in aortic area Lungs: Clear to auscultation with no wheezing or crackles. Abdomen: Soft, nondistended, nontender, positive bowel sounds. ?No guarding or rebound tenderness. Neurologic: Alert and oriented x3, no gross neurological deficit, and patient able to move all 4 extremities. Extremities: No edema. 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 Objective Labs 12/21/24 04:49 12/21/24 04:49 Labs: Laboratory Results - last 24 hr 12/19/24 12/20/24 18:10 04:08 WBC 7.9 RBC 2.49 L Hgb 7.8 L Hct 24.2 L MCV 97 MCH 31.3 MCHC 32.2 RDW Std Deviation 57.7 H Plt Count 133 L Neut % (Auto) 72 Lymph % (Auto) 15 [place] % (Auto) 6 Eos % (Auto) 6 Baso % (Auto) 0 Neut # (Auto) 5.7 Lymph # (Auto) 1.2 [place] # (Auto) 0.5 Eos # (Auto) 0.5 Baso # (Auto) 0.0 Immature Gran # (Auto) 0.04 H Absolute Nucleated RBC 0.00 Immature Gran % 1 H Nucleated RBC % 0 Sodium 143 143 Potassium 3.9 Chloride 113 H Carbon Dioxide 24.3 Anion Gap 6 L BUN 24 H Creatinine 0.7 Estim Creat Clear Calc 61.1 eGFR > 60 BUN/Creatinine Ratio 34 H Glucose 123 H D Calculated Osmolality 289 Calcium 8.5 Corrected Calcium 9.4 Total Bilirubin 0.4 AST 14 ALT 9 L Alkaline Phosphatase 56 Total Protein 4.9 L Albumin 2.9 L Globulin 2.0 L Albumin/Globulin Ratio 1.5 Quality Measures Quality Measures none Advance care planning discussed with:: patient and child Assessment & Plan Assessment Current Active Medications: Generic Name Dose Route Start Last Admin Trade Name Freq PRN Reason Stop Dose Admin Acetaminophen 650 mg 12/15/24 15:10 Acetaminophen Supp 650 Mg Supp [place] 01/14/25 15:09 Q6HR PRN pain(1-3) and Fever > 100.4 Dextrose 25 ml 12/15/24 15:15 Dextrose 50%-Water Inj 50 Ml Syringe IV 01/14/25 15:14 Q15MIN PRN BG 50-70 responsive npo pt Dextrose 50 ml 12/15/24 15:15 Dextrose 50%-Water Inj 50 Ml Syringe IV 01/14/25 15:14 Q15MIN PRN BG <50 OR BG <70 & pt unresponsive Glucagon 1 mg 12/15/24 15:15 Glucagon Inj 1 Mg Vial IM Q15MIN PRN BG <70, and no IV access Doxycycline Hyclate 100 mg/ 100 mls @ 100 mls/hr 12/15/24 21:00 12/20/24 09:54 Sodium Chloride IV 12/22/24 20:59 Infused BID BIMAL Infusion Ceftriaxone Sodium/Dextrose 1 gm in 50 mls @ 100 mls/hr 12/16/24 09:00 12/20/24 08:48 Rocephin/D5w 1gm Iv Premix IV 12/23/24 08:59 Infused QDAY BIMAL Infusion Insulin Glargine 10 unit 12/18/24 21:00 12/19/24 20:43 Insulin Glargine (Lantus) 5 Unit/0.05 Ml (Per 5 Units) SC 01/17/25 20:59 10 unit HS BIMAL Administration Insulin Human Lispro 0 unit 12/17/24 11:30 12/20/24 16:43 Insulin Lispro (Admelog) 1 Unit/0.01 Ml Unit SC 01/16/25 11:29 2 unit AC BIMAL Administration Protocol Losartan Potassium 25 mg 12/19/24 14:15 12/20/24 08:18 Losartan Potassium 25 Mg Tablet PO 01/18/25 14:14 25 mg QDAY BIMAL Administration Metoprolol Tartrate 25 mg 12/19/24 09:45 12/20/24 08:18 Metoprolol Tartrate 25 Mg Tablet PO 01/18/25 09:44 25 mg BID BIMAL Administration Nystatin 5 ml 12/19/24 15:30 12/20/24 13:00 Nystatin Susp 5 Ml Udc PO 12/26/24 15:29 5 ml TID BIMAL Administration Ondansetron HCl 4 mg 12/15/24 15:10 12/19/24 00:28 Ondansetron Inj 2 Mg/Ml Inj 2 Ml IV 01/14/25 15:09 4 mg Q6H PRN Administration NAUSEA OR VOMITING Protocol Pantoprazole Sodium 40 mg 12/16/24 09:00 12/20/24 08:18 Pantoprazole Inj 40 Mg Vial IVP 01/15/25 08:59 40 mg BID BIMAL Administration Plan 84-year-old female with past medical history of upper GI bleed, CVA, hypertension, hyperlipidemia, IDDM, right AKA, and peripheral artery disease was admitted to the ICU on 12/25/2024 for management of acute blood loss anemia with acute encephalopathy and anticipation for vasopressor support. # Dysphagia, resolved -Patient complained of difficulty in swallowing for which patient underwent upper GI endoscopy by Dr. Yates -Found to have esophageal stenosis and underwent dilatation -Also found to have a whitish plaque for which nystatin 5 mL p.o. 3 times daily is started #Hypernatremia, resolved -Sodium is 143 today and encouraged to take plenty of oral fluids -Will monitor electrolytes and correct accordingly #Acute blood loss anemia, resolved # 2/2 GI bleed from Gastric ulcers #Hematemesis, resolved Patient came in initially with complaints of bloody emesis Patient does have a history of previous upper GI bleed from possible gastric ulcers which were followed by endoscopy in [facility] Patient came in with hemoglobin of 4.7 from her baseline of 9.4 on 08/13/2024. Fecal occult blood was positive UGI endoscopy was done by Dr. Yates that revealed erosion at gastroesophageal junction, nonbleeding gastric ulcers with a clean ulcer base, multiple small ulcer measuring 9 to 10 mm in size, gastritis. Plan Patient was taking aspirin and Plavix, held for now Transfused 3 units of PRBC Continue Protonix On peptic ulcer diet #Emphysematous cystitis #UTI Abdomen/pelvis CT that shows severe emphysematous pattern with air in the urinary bladder wall UA showed bacteriuria Urine culture grew Raoutella ornithinolytica Blood cultures showed no growth after 48hrs Plan Continue patient on Rocephin 1 g daily [12/15/2024?] #Ulcer and left foot between 4th and 5th digit Patient's vascular surgeon wanted on CT abdomen with femoral runoff, will recommend to do in outpatient basis Will continue doxycycline #PIO, resolved Most likely prerenal in the setting of blood loss Patient came in with creatinine of 1.6 from her baseline of 1 Creatinine today 1.1 Avoid nephrotoxic agents Renally dose medications #Hx of CVA Patient was taking atorvastatin, Plavix, and aspirin Will hold off Plavix and aspirin for now in the setting of bleeding #Troponinemia, likely type II, resolved This is most likely demand ischemia in the setting of blood loss Patient's troponin was elevated at 0.219>>0.592>>0.235 EKG did not show any acute ST changes Echo showed moderate Aortic stenosis and EF 55-60 #Nonobstructing nephrolithiasis Abdomen/pelvis CT that show some nonobstructing nephrolithiasis #Severe constipation #Proctitis Abdomen/pelvis CT that shows some proctitis pattern as well as large amounts of stool within the rectosigmoid Hospital Maintenance: Diet: Peptic ulcer diet DVT ppx: held due to bleeding GI ppx: protonix IV lines: PIV Code status: Full Dispo: medsurg Patient plan of care was discussed with the attending physician, Dr. Prabhakar and senior resident Dr. Hakan Greenwood, PGY1 Attending Provider Attestation/Addendum I attest that I was physically present for the evaluation, physical examination, lab and imaging review of the patient with the residents. I discussed the case with the residents and agree with the findings and plans of care as documented above. At bedside today, patient states she is feeling well and denies any new complaints. Hemoglobin level remains stable. Patient has not been having good appetite despite encouragement. She has been complaining about nausea. We will add Reglan x 1. Also started her on mirtazapine every evening. Her hyponatremia have resolved. Continues to be on IV antibiotics for UTI. Kidney function is stable. Family at bedside updated about her current condition. Also requested them to encourage her to have good oral intake. Family understands and are in agreement. Yasmin Prabhakar MD
[2024-12-20] MEDS: MIRTAZAPINE 15 MG TABLET PO (17:28)
--- NOTE | 2024-12-20 17:34 | PD.IMPROG ---
Documentation for date of: 12/20/24 Subjective Subjective Interval history: Upper endoscopy showed Carrol esophagitis Proximal esophagus distal status post guidewire savory dilatation Exam Vital Signs Temp Pulse Resp BP Pulse Ox O2 Del Method O2 Flow Rate 98.1 F 82 17 126/52 L 93 L Room Air 3 12/20/24 16:00 12/20/24 16:00 12/20/24 16:00 12/20/24 16:00 12/20/24 16:00 12/20/24 16:00 12/19/24 16:00 Objective Labs 12/20/24 04:08 12/20/24 04:08 Labs: Laboratory Results - last 24 hr 12/19/24 12/20/24 18:10 04:08 WBC 7.9 RBC 2.49 L Hgb 7.8 L Hct 24.2 L MCV 97 MCH 31.3 MCHC 32.2 RDW Std Deviation 57.7 H Plt Count 133 L Neut % (Auto) 72 Lymph % (Auto) 15 [place] % (Auto) 6 Eos % (Auto) 6 Baso % (Auto) 0 Neut # (Auto) 5.7 Lymph # (Auto) 1.2 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 Advance diet as tolerated Assessment & Plan A&P Narrative # Hematemesis # Acute posthemorrhagic anemia plan agree with the blood transfusion consent will be obtained from the family for fiberoptic esophagogastroduodenoscopy with possible therapeutic intervention under intravenous moderate sedation possible biopsy Procedure has been scheduled for tomorrow afternoon IV Protonix Serial CBC Will follow the patient Other medical problems include Lactic acidosis PIO Stool impaction left colon Elevated BNP Resolving hypotension Elevated troponin 0.219 History of CVA Status post right AKA IDDM Essential hypertension Peripheral vascular disease Thank you very much for the opportunity to participate in care of this patient Time Spent With Patient Time: Total time spent is greater than 50% in coordination of care (as documented) at patient's floor/unit and/or counseling patient:
[2024-12-20] MEDS: INSULIN GLARGINE (Lantus) 5 UNIT/0.05 ML (PER 5 UNITS) 10 UNIT SC (21:14)
[2024-12-21] VITALS (14 sets, daily range): BP systolic 135–206; BP diastolic 49–77; PULSE 68–678; RESP 16–20; TEMP 36.1–37.2; O2SAT 93–95
[2024-12-21] MEDS: NYSTATIN SUSP 5 ML UDC PO ×3 (05:49→21:24)
[2024-12-21 05:54] LABS: Basophils % (Auto) 0 % (0-2.5); Eosinophils # (Auto) 0.5 Thou/mm3 (0.0-0.5); Eosinophils % (Auto) 8 % (0-10); Hematocrit 24.7 % (36.0-46.0); Immature Granulocytes % (Auto) 0 % (0-0); Immature Granulocytes Auto 0.02 Thou/mm3 (0.00-0.00); Lymphocytes # (Auto) 1.3 Thou/mm3 (1.0-4.8); Lymphocytes % (Auto) 19 % (10-50); Mean Corpuscular HGB Conc 32.8 g/dl (31.0-37.0); Mean Corpuscular Hemoglobin 30.6 pg (25.0-35.0); Mean Corpuscular Volume 93 fL (80-100); Monocytes # (Auto) 0.4 Thou/mm3 (0.0-0.8); Monocytes % (Auto) 6 % (0-12); Neutrophils # (Auto) 4.7 Thou/mm3 (1.8-7.7); Neutrophils % (Auto) 68 % (37-80); Nucleated Red Blood Cell % 0 /100 WBC (0); Platelet Count 143 Thou/mm3 (140-440); Red Blood Count 2.65 Miln/mm3 (4.00-5.20); White Blood Count 6.9 Thou/mm3 (3.6-11.0)
[2024-12-21 06:05] LABS: Hemoglobin 8.1 g/dL (12.0-16.0)
[2024-12-21 06:14] LABS: Alanine Aminotransferase 10 U/L (10-49); Albumin, Serum 2.9 gm/dL (3.4-4.8); Albumin/Globulin Ratio 1.4 (1.2-2.2); Alkaline Phosphatase 56 U/L (46-116); Anion Gap 9 (7-16); Aspartate Amino Transferase 14 U/L (0-34); BUN/Creatinine Ratio 27 Ratio (12-20); Bilirubin,Total 0.4 mg/dL (0.3-1.2); Blood Urea Nitrogen 19 mg/dL (9-23); Calcium 8.5 mg/dL (8.3-10.6); Calcium (Corrected) 9.4 mg/dL (8.5-10.1); Carbon Dioxide 24.1 mMol/L (20.0-31.0); Chloride 112 mMol/L (98-107); Creatinine (Component) 0.7 mg/dL (0.6-1.3); Estimated Creatinine Clearance 61.2 mL/min (>60); Globulin 2.1 gm/dL (2.3-3.5); Glucose 95 mg/dL (74-106); Osmolality,Calculated 290 (275-295); Potassium 3.7 mMol/L (3.4-5.1); Sodium 145 mMol/L (136-145); eGFR > 60 See Note
[2024-12-21] MEDS: DOXYCYCLINE INJ 100 MG in SODIUM CHLORIDE 0.9% (POP) 100 ML IV ×2 (08:46→21:08)
[2024-12-21] MEDS: PANTOPRAZOLE INJ 40 MG VIAL IVP ×2 (08:46→21:08)
[2024-12-21] MEDS: cefTRIAXone/D5w 1gm IV premix 1 GM/50 ML BAG IV (08:48)
[2024-12-21] MEDS: METOPROLOL TARTRATE 25 MG TABLET PO ×2 (08:49→21:08)
[2024-12-21] MEDS: LOSARTAN POTASSIUM 25 MG TABLET PO (08:50)
[2024-12-21] MEDS: Silvasorb Gel 45 ML TUBE TOP (08:51)
[2024-12-21] MEDS: MIRTAZAPINE 15 MG TABLET PO (08:51)
[2024-12-21] MEDS: MORPHINE SULF INJ 10 MG/ML VIAL IVP (11:43)
--- NOTE | 2024-12-21 14:02 | ESDS_ITS ---
Planned Discharge Date 12/21/24 DS: Providers Provider Date of admission: 12/15/24 15:10 Primary care physician: Mike Hooks([facility])TENA Admitting Provider: Palomo Fitzgerald MD Attending Provider on Admission: Yasmin Prabhakar MD Consults: 12/15/24 13:45 Consult to Gastroenterology Stat Comment: Consulting Provider: Alan Yates 12/15/24 20:07 Referral Registered Dietitian Routine Comment: 12/16/24 00:52 Referral Wound Care Routine Comment: wound left 5th toe 12/16/24 10:36 Referral OP Wound Healing Dept Routine Comment: Left 4th and 5th toe DM ulcer 12/17/24 10:01 Referral Physical Therapy Routine Comment: Physician Instructions: 12/18/24 18:03 Referral Registered Dietitian Routine Comment: poor appetitie Attending Provider on DC: Darren Greenwood MD Discharging Provider: Darren Greenwood MD DS: Diagnosis Problem List Completed Was Problem List Reviewed/Reconciled?: Yes Hospital Course Hospital Course Hospital course: A 84-year-old female with past medical history of upper GI bleed, CVA, hypertension, hyperlipidemia, IDDM, right AKA, and peripheral artery disease was admitted to the ICU on 12/25/2024 after coming to the ED with complaints of altered mental status and bloody emesis and admitted in the hospital for upper GI bleed secondary to gastric ulcers and PIO Hospital course: Initial labs at the time of admission showed Hb 4.7, BUN 129, creatinine 1.6, lactate 5.2, positive for stool occult blood and UA suggestive of UTI. CT abdomen/pelvis showed nephrolithiasis which were nonobstructing, proctitis, emphysematous cystitis. Head CT was negative for acute hemorrhage, mass effect, midline shift. Patient was initially admitted in the ICU and started on Protonix drip. 3 units of PRBC transfusion was given. Echo done showedestimated LVEF 55-60%. Mild LVH. Diastolic Dysfunction I. Normal RV size and function. RVSP mildly elevated at 35 and 40 mmHg. Moderate aortic stenosis with peak velocity of 3.0 cm/s, mean gradient of 23 mmHg, valve area of 1.2 cm?. GI Dr[address] Yates was consulted and EGD was done that showed a single erosion at gastroesophageal junction, nonbleeding gastric ulcers with clean ulcer base, multiple small ulcers measuring 9 to 10 mm in size, 1 ulcer was 15 mm both are superficial, gastritis. Held patient's aspirin and Plavix during the hospital stay. Her kidney injury improved within the first 2 days and creatinine is within normal limits. Later patient was downgraded to floors for further management. Patient was found to have hyponatremia with sodium 153 for which she was treated with D5 and later sodium came back to normal limits. Later patient complained of dysphagia for which she underwent endoscopy again and found to have esophagitis, benign-appearing esophageal stenosis which was dilated during the procedure. 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 Recommended to start on nystatin swish and swallow 5 cc p.o. 3 times daily. Patient also found to have small ulcer between right 4th and 5th toe for which wound care was done in the hospital. Patient was recommended to get CT angio of lower extremity by her vascular surgeon Dr. Buck, but held in the hospital in view of recent PIO and recommended to get that procedure done on outpatient basis as it was not an emergency Patient is discharged to home with home health with following medications and recommendations -Follow-up with PCP within 1 week of discharge. If you do not have appointment, please follow-up with the [facility] with Dr. Greenwood. Call [phone] to make an appointment. -Start on losartan 25mg orally daily, metformin 500mg twice daily, nystatin 5ml thrice daily. -Continue atorvastatin 80 Mg, ferrous sulfate tablet p.o. daily, furosemide 20 Mg p.o. daily, metoprolol tartrate 25 Mg p.o. twice daily, pentoxifylline 400 Mg p.o. 3 times in a day -Recommended to take pantoprazole 40 Mg p.o. twice daily for 1 week, follow-up with PCP -Recommended to hold aspirin, Plavix, insulin till patient sees the primary care provider -Recommended to stop glipizide, pioglitazone, insulin -Return to ED if symptoms persist or return -Follow up at [facility] for left 5th toe wound. [address] [place] [address]. Call [phone] for appointment -Wound care to left 4th and 5th toe: may shower than change dressing. Wash hands and remove old dressing. Cleanse site with normal saline and pat dry with guaze. Wash hands again. Apply thin layer of silvasorb gel to wound bed. Layer with calcium alginate between toe webs and lightly secure with kerlix roll daily. # Dysphagia, resolved #Hypernatremia, resolved #Acute blood loss anemia, resolved # 2/2 GI bleed from Gastric ulcers #Hematemesis, resolved #Emphysematous cystitis #UTI #Ulcer and left foot between 4th and 5th digit #PIO, resolved #Hx of CVA #Troponinemia, likely type II, resolved #Nonobstructing nephrolithiasis #Severe constipation #Proctitis Patient plan of care was discussed with the attending physician, Dr. Aki Greenwood, PGY1 Time Spent with Patient Time attestation: Total time spent providing and/or coordinating discharge services: Time spent: Less than 30 minutes Exam Vital Signs Temp Pulse Resp BP Pulse Ox O2 Del Method O2 Flow Rate 98.5 F 69 19 163/49 H 93 L Room Air 3 12/21/24 11:23 12/21/24 12:00 12/21/24 11:12/21/24 11:12/21/24 11:12/21/24 11:12/19/24 16:00 Narrative Exam General: Awake. HEENT: Normocephalic, atraumatic, mucous membranes moist. Heart: Regular rate and rhythm, ejection systolic murmur in aortic area Lungs: Clear to auscultation with no wheezing or crackles. Abdomen: Soft, nondistended, nontender, positive bowel sounds. ?No guarding or rebound tenderness. Neurologic: Alert and oriented x3, no gross neurological deficit, and patient able to move all 4 extremities. Extremities: No edema. 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 Discharge Plan Plan Patient Disposition: Home w/HOME HEALTH Patient condition on transfer: Stable Care Plan Goals: -Follow-up with PCP within 1 week of discharge. If you do not have appointment, please follow-up with the [facility] with Dr. Greenwood. Call [phone] to make an appointment. -Start on losartan 25mg orally daily, metformin 500mg twice daily, nystatin 5ml thrice daily. -Continue atorvastatin 80 Mg, ferrous sulfate tablet p.o. daily, furosemide 20 Mg p.o. daily, metoprolol tartrate 25 Mg p.o. twice daily, pentoxifylline 400 Mg p.o. 3 times in a day -Recommended to take pantoprazole 40 Mg p.o. twice daily for 1 week, follow-up with PCP -Recommended to hold aspirin, Plavix, insulin till patient sees the primary care provider -Recommended to stop glipizide, pioglitazone, insulin -Return to ED if symptoms persist or return -Follow up at [facility] for left 5th toe wound. [address] [facility]. Call [phone] for appointment -Wound care to left 4th and 5th toe: may shower than change dressing. Wash hands and remove old dressing. Cleanse site with normal saline and pat dry with guaze. Wash hands again. Apply thin layer of silvasorb gel to wound bed. Layer with calcium alginate between toe webs and lightly secure with kerlix roll daily. Prescriptions/Referrals Prescriptions/Med Rec: New metformin 500 mg tablet 500 mg PO BIDWMEAL Qty: 60 0RF losartan 25 mg tablet 25 mg PO QDAY Qty: 30 0RF SilvaSorb Gel,Extended Release 1 applic topical QDAY 30 Days Qty: 3 0RF nystatin 100,000 unit/mL suspension 5 ml buccal TID Qty: 60 0RF Rx Instructions: administer 1/2 of dose in each side of the mouth Continued furosemide 20 mg Tablet 40 mg PO QDAY metoprolol tartrate 25 mg Tablet 1 tab PO BID atorvastatin 80 mg Tablet 80 mg PO QPM pentoxifylline 400 mg Tablet Extended Release 400 mg PO TID Rx Instructions: must administer with a meal/food benzonatate 100 mg Capsule 100 mg PO TID PRN (Reason: Cough) albuterol 90 mcg/actuation Aerosol 90 mcg INHALATION Q4HR PRN (Reason: SOB) Rx Instructions: 2 PUFFS Q4HRS PRN SOB ferrous sulfate [FeroSul] 325 mg (65 mg iron) tablet PO DAILY Patient Comments: take 1 tablet by mouth once daily Changed pantoprazole [Protonix] 40 mg Tablet,Delayed Release (/Ec) 40 mg PO BID Qty: 60 2RF Held clopidogrel [Plavix] 75 mg Tablet 75 mg PO QDAY Hold Instructions: Resume on 01/04/25. till patient sees the primary care provider aspirin 81 mg tablet,delayed release (DR/EC) 81 mg PO DAILY Hold Instructions: Resume on 01/04/25. till Patient sees the primary care provider Patient Comments: take 1 tablet by mouth once daily insulin glargine [Lantus Solostar U-100 Insulin] 100 unit/mL (3 mL) insulin pen 20 unit SUBCUT .qhs Hold Instructions: Resume on 01/04/25. hold insulin if the fasting blood sugar in the morning is <130 Patient Comments: inject 30 units subcutaneously at bedtime . THIS IS TO REPLACE BASAGLAR Discontinued glipizide 10 mg Tablet 1 tab PO BID pioglitazone 30 mg Tablet 1 tab PO QDAY potassium chloride 20 mEq tablet,ER particles/crystals 20 meq PO DAILY Patient Comments: take 1 tablet by mouth once daily with food Referrals: Neva([facility])Mike NP [Primary Care Provider] - Patient/Caregiver Discharge Instructions Education Materials: Diabetes Treating Minor Foot ..., Diabetes PAD Print Language: Welsh Stand Alone Forms: Tonya Award Info., Patient Portal Info Letter Discharge Order Discharge Orders: Discharge (Routine); Ordered 12/21/24 Ordered By: Darren Greenwood Quality Discharge Quality Measures VTE prophylaxis Attestestation MD Attestation I attest that I was physically present for the evaluation, physical examination, lab and imaging review of the patient with the residents. I discussed the case with the residents and agree with the findings and plans of care as documented above. Yasmin Prabhakar MD
--- NOTE | 2024-12-21 16:01 | PC.SS ---
SS received a call from patient's nurseElisabeth requesting for SS to set up transportation for patient to discharge home. set up transportation via phone with [facility], Reference # [id number].
--- NOTE | 2024-12-21 16:26 | PC.SS ---
SS follow up note; SS met with patient's daughter and she informed SS she would like JOSE GUADALUPE Denney to follow patient, SS informed Dr. Prabhakar.
--- NOTE | 2024-12-21 19:27 | PC.NURSE ---
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 Dc'd tele monitor. [id number] called md and per md to change time of discharge to 2 hours after. - md will place orders. cut file clerk will call transport to reschedule time of discharge to 22:00. Familt member at bedside and notified of plan of care.
[2024-12-21] MEDS: hydrALAZINE INJ 20 MG/ML VIAL 10 MG IV (19:42)
[2024-12-21] MEDS: amLODIPine BESYLATE 5 MG TABLET PO (19:42)
[2024-12-21] MEDS: ACETAMINOPHEN SUPP 650 MG SUPP PR (19:43)
--- NOTE | 2024-12-21 20:05 | PC.NURSE ---
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
[2024-12-21] MEDS: INSULIN GLARGINE (Lantus) 5 UNIT/0.05 ML (PER 5 UNITS) 10 UNIT SC (21:28)
--- NOTE | 2024-12-22 12:40 | PC.CM ---
[facility] accepted patient and they will see patient on 12/23.
== END 2024-12-21 22:29 | disposition home health service (06) | DRG 377 ==
LOC: SERX 14:13 → SERHOLD 12-16 06:12 → S2SX 12-16 06:12 → S3NX 12-16 19:59
PROVIDERS: Registered Nurse General Practice; Specialist; Student in an Organized Health Care Education/Training Program; Admitting Provider Internal Medicine Critical Care Medicine; Emergency Provider Emergency Medicine; PCP Nurse Practitioner Family; Visit Provider Student in an Organized Health Care Education/Training Program
PROC: (CPT 43239; principal; 2024-12-16 18:00)
DX: K25.4 Chronic or unspecified gastric ulcer with hemorrhage (principal); G93.41 Metabolic encephalopathy; B37.81 Candidal esophagitis; D62 Acute posthemorrhagic anemia; E87.20 Acidosis, unspecified; N17.9 Acute kidney failure, unspecified; E87.1 Hypo-osmolality and hyponatremia; E87.0 Hyperosmolality and hypernatremia; K22.11 Ulcer of esophagus with bleeding; K22.2 Esophageal obstruction; E78.5 Hyperlipidemia, unspecified; Z86.73 Personal history of transient ischemic attack (TIA), and cerebral infarction without residual deficits; I95.9 Hypotension, unspecified; K62.89 Other specified diseases of anus and rectum; N20.0 Calculus of kidney; E11.621 Type 2 diabetes mellitus with foot ulcer; K59.00 Constipation, unspecified; N30.80 Other cystitis without hematuria; Z89.611 Acquired absence of right leg above knee; Z79.4 Long term (current) use of insulin; Z79.02 Long term (current) use of antithrombotics/antiplatelets; L97.529 Non-pressure chronic ulcer of other part of left foot with unspecified severity; E11.51 Type 2 diabetes mellitus with diabetic peripheral angiopathy without gangrene; Z66 Do not resuscitate; D53.9 Nutritional anemia, unspecified; I35.0 Nonrheumatic aortic (valve) stenosis; I10 Essential (primary) hypertension; I11.0 Hypertensive heart disease with heart failure
CPT/HCPCS: 36415; 36430; 70450; 71045; 74176; 80053; 80069; 80307; 81001; 82270; 83036; 83605; 83615; 83735; 83880; 84100; 84145; 84295; 84484; 85014; 85018; 85025; 85610; 85730; 86850; 86900; 86901; 86923; 87040; 87077; 87081; 87086; 87186; 93005; 93225; 93306; 96361; 96365; 96374; 96375; 97161; 99285; A4649; C1769; J0360; J0696; J1200; J1815; J2250; J2270; J2310; J2405; J2470; J2765; J3010; J3490; J7030; J7040; J7070; P9016; A9270